=== PATIENT | female | born 1930 | race Caucasian/White ===

== ENCOUNTER 2017-02-09 15:23 | Inpatient (IN) | payer MEDICARE, BC ==
[~2017-02-09] VITALS: Ht 149.9 cm; Wt 55.0 kg
[2017-02-09] MEDS ORDERED: SOD CHLORIDE 0.9% 1,000 ML IV STA (15:47)
[2017-02-09] MEDS ORDERED: OMEP20CA16 PO (16:18)
[2017-02-09] MEDS ORDERED: SODI650T PO (16:19)
[2017-02-09] MEDS ORDERED: DILT180C94 PO (16:20)
[2017-02-09] MEDS ORDERED: TRAM-40 PO (16:21)
[2017-02-09] MEDS ORDERED: CHOL200073 PO (16:22)
[2017-02-09] MEDS ORDERED: ORENCIA 750 MG IV* (16:25)
[2017-02-09 16:30] LABS: BASOPHILS % 0.4 % (0.0-2.0); EOSINOPHILS # 0.4 10^3/ul (0.0-0.5); EOSINOPHILS % 4.9 % (0.0-7.0); HEMOGLOBIN 9.2 g/dl (12.0-16.0); LYMPHOCYTES # 1.6 10^3/ul (0.8-2.9); LYMPHOCYTES % 22.3 % (15.0-51.0); MEAN CORPUSCULAR HEMOGLOBIN 31.8 pg (29.0-33.0); MEAN CORPUSCULAR HGB CONC 32.9 g/dl (32.0-37.0); MEAN CORPUSCULAR VOLUME 96.9 fl (82.0-101.0); MEAN PLATELET VOLUME 9.3 fl (7.4-10.4); MONOCYTE # 0.7 10^3/ul (0.3-0.9); MONOCYTES % 9.4 % (0.0-11.0); NEUTROPHIL # 4.5 10^3/ul (1.6-7.5); NEUTROPHILS % 62.6 % (39.0-77.0); PLATELET COUNT 297 10^3/UL (140-415); RED BLOOD COUNT 2.89 10^6/ul (4.20-5.40); RED CELL DISTRIBUTION WIDTH 15.4 % (11.5-14.5); WHITE BLOOD COUNT 7.1 10^3/ul (4.8-10.8)
[2017-02-09 16:44] LABS: INR 0.97; PROTIME 12.9 Sec (12.2-14.2)
[2017-02-09 16:48] LABS: CALCIUM 8.7 mg/dl (8.4-10.2); CREATININE 4.76 mg/dl (0.44-1.00); POTASSIUM 4.3 mmol/L (3.5-5.1)
[2017-02-09] MEDS ORDERED: NA BICARBONATE 8.4% 50 ML SYG IV STA (16:55)
[2017-02-09] MEDS ORDERED: ACETAMINOPHEN 325 MG TAB PO PRN ×2 (17:00→19:30)
[2017-02-09] MEDS ORDERED: ONDANSETRON 4 MG INJ IV PRN ×2 (17:00→19:30)
[2017-02-09 17:03] LABS: TROPONIN-I 0.27 ng/ml (0.00-0.12)
--- NOTE | 2017-02-09 17:58 | CONS ---
Date/Time of Note Date/Time of Note DATE: 02/09/17 TIME: 17:57 Assessment/Plan Assessment/Plan Problems: (1) CKD (chronic kidney disease) stage 5, GFR less than 15 ml/min Status: Acute (2) Uremia Status: Acute (3) Anemia in CKD (chronic kidney disease) Status: Chronic (4) Metabolic acidosis Status: Chronic (5) Interstitial cystitis Status: Chronic (6) Osteoporosis Status: Chronic (7) Hypertension Status: Chronic Additional Assessment/Plan given uremia, plan to start hemodialysis plan for permacatheter placement. check phosphorus level. plan for epo with hemodialysis check quant gold and hepatitis panel in preparation for outpatient HD placement. case management consult for placement at [facility] in [place]. renally dose all medications to eGFR given that patient continues to make urine, avoid nephrotoxins if possible including iodinated contrast and NSAIDs. renal diet Feel free to call at any time: can text or call cell: [phone] office: [phone] Consultation Date/Type/Reason Admit Date/Time 02/09/17 6:00pm Date of Consultation: Feb 09, 2017 Type of Consultation: Nephrology Reason for Consultation management of CKD stage 5 in setting of uremia Referring Provider: ALEXANDRA COOPER MD Hx of Present Illness Primary Care Physician: Vj Niño MD with [facility] 86 female with history of rheumatoid arthritis, hypertension, osteoporosis, ckd stage 5, MGUS, anemia, hx of interstitial cystitis s/p cystectomy and ureterostomy placement was seen in my office today for follow up. Blood work yesterday showed a hemolyzed K of 6.6. Upon previous discussion, patient was not interested in hemodialysis. Today, patient states that she would like to try it. Family was present during discussion. Patient has been feeling tired recently. she has noted more swelling in the lower extremities and elbows. no dyspnea. no fevers. no chills. no vomiting. she has been taking sodium bicarbonate 650mg PO BID. patient continues to make about 2L of urine per day. no diarrhea. 14 pt review of systems was obtained and found to be negative or normal besides what was mentioned above. Past Medical History rheumatoid arthritis hypertension osteoporosis CKD stage 5 MGUS Anemia of CKD Interstitial cystitis s/p cystectomy and ureterostomy placement Past Surgical History cystectomy with neobladder small intestine surgery eye surgery joint replacement Family History Significant Family History: cancer Social History no tobacco, alcohol, drug use. Smoking Status: Never smoker Exam/Review of Systems Vital Signs Vitals Vital Signs Date Time Temp Pulse Resp B/P Pulse Ox O2 Delivery O2 Flow Rate FiO2 02/09/17 16:18 79 18 145/71 100 Room Air 02/09/17 15:25 100.0 Exam GENERAL: A&Ox3 NAD speaking in full sentences, cooperative and pleasant. Head: ncat, no ttp eyes: perrl, eomi, no scleral icterus. +conjunctival pallor neck: no jvd, no bruits, no cervical LAD CV: normal S1/S2 RRR no mrg LUNGS: ctab good air entry. no accessory muscle use. ABD: normal BS soft, NT, ND, catheter placed in suprapubic region. EXT: 2+ lower extremity to mid hogue. edema around elbows b/l. 2+ DP/PT pulses b/l SKIN: no rash, no erythema, no warmth. Results Result Diagram: 02/09/17 1615 02/09/17 1615 Results 24 hrs Laboratory Tests Test 02/09/17 16:15 White Blood Count 7.1 Red Blood Count 2.89 L Hemoglobin 9.2 L Hematocrit 28.0 L Mean Corpuscular Volume 96.9 Mean Corpuscular Hemoglobin 31.8 Mean Corpuscular Hemoglobin Concent 32.9 Red Cell Distribution Width 15.4 H Platelet Count 297 Mean Platelet Volume 9.3 Neutrophils % 62.6 Lymphocytes % 22.3 Monocytes % 9.4 Eosinophils % 4.9 Basophils % 0.4 Nucleated Red Blood Cells % 0.0 Neutrophils # 4.5 Lymphocytes # 1.6 Monocytes # 0.7 Eosinophils # 0.4 Basophils # 0.0 Nucleated Red Blood Cells # 0.0 Prothrombin Time 12.9 Prothrombin Time Ratio 1.0 INR International Normalized Ratio 0.97 Activated Partial Thromboplast Time 28.0 Sodium Level 137 Potassium Level 4.3 Chloride Level 106 Carbon Dioxide Level 15 L Anion Gap 20 H Blood Urea Nitrogen 66 H Creatinine 4.76 H Glucose Level 93 Calcium Level 8.7 Troponin I 0.270 *H Medications Medications outpatient meds reviewed. SIMONE BUSTILLO MD Feb 09, 2017 17:58
[2017-02-09] MEDS ORDERED: ALBUMIN HUMAN 25% 50 ML IV PRN (18:30)
[2017-02-09] MEDS ORDERED: ALBUMIN HUMAN 25% 100 ML IV PRN (18:30)
[2017-02-09] MEDS ORDERED: HEPARIN 1000 UNITS/ML 10 ML INJ CATHETER SCH (18:30)
--- NOTE | 2017-02-09 18:33 | ERA ---
ER Documentation Chief Complaint Date/Time DATE: 02/09/17 TIME: 18:29 Chief Complaint SENT BY PMD FOR CRAETININE 4.29 , POTASSIUM 6.6 HPI Patient is an 86-year-old female with hypertension and rheumatoid arthritis who presents with high creatinine and high potassium. The patient was sent by the doctor who had drawn labs yesterday. The daughter says "her kidneys have been going down over the past few months". The patient had a Newsome catheter and placed at [facility] and it was removed and she was unable to pee for 30 hours because of urinary retention. Her normal creatinine is 2. Upon review this the patient's first visit to the emergency department. The patient' s puzzle assembler is Dr. Phelan. ROS All systems reviewed and are negative except as per history of present illness. Medications Home Meds Reported Medications [Orencia 750MG] No Conflict Check, 750 MG IV* [id number] 02/09/17 Cholecalciferol (Vitamin D3) (VITAMIN D-3) 2,000 Unit Capsule, 2000 UNIT PO DAILY, CAP 02/09/17 Tramadol Hcl* (Ultram*) 50 Mg Tablet, 50 MG PO BID Y for PAIN, TAB 02/09/17 Diltiazem Hcl* (Diltiazem XT) 180 Mg Capsule.er, 180 MG PO DAILY, #30 CAP 02/09/17 Sodium Bicarbonate* (Sodium Bicarbonate*) 650 Mg Tablet, 650 MG PO BID, TAB 02/09/17 Omeprazole* (Omeprazole*) 20 Mg Capsule.dr, 20 MG PO DAILY, #30 CAP 02/09/17 PMhx/Soc History of Surgery: Yes (bilat foot sx, rt TKR, cystectomy suprapubic cath, lt detached retina, ) Anesthesia Reaction: No Hx Neurological Disorder: No Hx Respiratory Disorders: No Hx Cardiac Disorders: Yes (HTN) Hx Psychiatric Problems: No Hx Alcohol Use: No Hx Substance Use: No Hx Tobacco Use: No Smoking Status: Never smoker FmHx Family History: diabetes Physical Exam Vitals Vital Signs Date Time Temp Pulse Resp B/P Pulse Ox O2 Delivery O2 Flow Rate FiO2 02/09/17 16:18 79 18 145/71 100 Room Air 02/09/17 15:25 100.0 87 18 149/72 98 Physical Exam Const: No acute distress Head: Atraumatic Eyes: Normal Conjunctiva ENT: Normal External Ears, Nose and Mouth. Neck: Full range of motion..~ No meningismus. Resp: Clear to auscultation bilaterally Cardio: Regular rate and rhythm, no murmurs Abd: Soft, non tender, non distended. Normal bowel sounds Skin: No petechiae or rashes Back: No midline or flank tenderness Ext: Swelling to the upper extremities bilaterally Neur: Awake and alert Psych: Normal Mood and Affect Result Diagram: 02/09/17 1615 02/09/17 1615 Results 24 hrs Laboratory Tests Test 02/09/17 16:15 White Blood Count 7.110^3/ul Red Blood Count 2.8910^6/ul Hemoglobin 9.2g/dl Hematocrit 28.0% Mean Corpuscular Volume 96.9fl Mean Corpuscular Hemoglobin 31.8pg Mean Corpuscular Hemoglobin Concent 32.9g/dl Red Cell Distribution Width 15.4% Platelet Count 18196^3/UL Mean Platelet Volume 9.3fl Neutrophils % 62.6% Lymphocytes % 22.3% Monocytes % 9.4% Eosinophils % 4.9% Basophils % 0.4% Nucleated Red Blood Cells % 0.0/100WBC Neutrophils # 4.510^3/ul Lymphocytes # 1.610^3/ul Monocytes # 0.710^3/ul Eosinophils # 0.410^3/ul Basophils # 0.010^3/ul Nucleated Red Blood Cells # 0.010^3/ul Prothrombin Time 12.9Sec Prothrombin Time Ratio 1.0 INR International Normalized Ratio 0.97 Activated Partial Thromboplast Time 28.0Sec Sodium Level 137mmol/L Potassium Level 4.3mmol/L Chloride Level 106mmol/L Carbon Dioxide Level 15mmol/L Anion Gap 20 Blood Urea Nitrogen 66mg/dl Creatinine 4.76mg/dl Glucose Level 93mg/dl Calcium Level 8.7mg/dl Troponin I 0.270ng/ml Current Medications Medications (Trade) Dose Ordered Sig/Daryl Route PRN Reason Start Time Stop Time Status Last Admin Dose Admin Sodium Chloride (NS) 1,000 ml @ 1,000 mls/hr Q1H STAT IV 02/09/17 15:47 02/09/17 16:46 DC 02/09/17 16:14 Sodium Bicarbonate (Na Bicarb 8.4% Syg) 50 ml ONCE STAT IV 02/09/17 16:55 02/09/17 16:56 DC 02/09/17 17:32 Ondansetron HCl (Zofran Inj) 4 mg ER BRIDGE PRN IV NAUSEA AND/OR VOMITING 02/09/17 17:00 02/10/17 16:59 Acetaminophen (Tylenol Tab) 650 mg ER BRIDGE PRN PO MILD PAIN/FEVER 02/09/17 17:00 02/10/17 16:59 Heparin Sodium (Porcine) 4000 unit 4,000 unit AFTER DIALYSIS CATHETER 02/09/17 18:30 UNV Albumin Human 50 ml @ 100 mls/hr DURING DIALYSIS PRN IV SBP<90 DURING DIALYSIS 02/09/17 18:30 UNV Albumin Human (Albumin Human 25%) 100 ml @ 100 mls/hr DURING DIALYSIS PRN IV SBP<90 DURING DIALYSIS 02/09/17 18:30 UNV Epoetin Uzair (Epogen (Esrd)) 5,000 units MoWeFr@17 SC 02/10/17 17:00 UNV Procedures/MDM EKG read by me: Rate/Rhythm: Regular rate and rhythm at a normal rate Intervals: Normal Impression: No evidence of ischemia or arrhythmia Patient is an 86-year-old female with rheumatoid arthritis who presents with acute renal failure. Creatinine has gone from 2-4. The patient had a potassium of 6.6 done on outpatient labs yesterday but today it is normal. The patient will be admitted to the panel team for further workup. Dr. Phelan the puzzle assembler has seen the patient at the bedside and says the patient will require dialysis. The patient's bicarbonate is 15 showing acute acidosis and I gave 1 amp of bicarb. At this point the potassium is normal but has the possibility of going higher. The patient will be admitted to a telemetry bed. Critical Care: Time: 35 minutes excluding all billable procedures. Treatments/Evaluations: Close monitoring and treatment of unstable vital signs, cardiorespiratory, and neurologic status, while maintaining tight balance of fluid, respiratory, and cardiac interventions. Departure Diagnosis: Primary Impression: Acute renal failure Qualified Code: N17.9 - Acute renal failure, unspecified acute renal failure type Additional Impression: Acidosis ALEXANDRA COOPER MD Feb 09, 2017 18:33
[2017-02-09] MEDS ORDERED: ASPIRIN 325 MG TAB PO ONE (19:00)
[2017-02-09] MEDS ORDERED: DOCUSATE SODIUM 100 MG CAP PO PRN (19:30)
[2017-02-09] MEDS ORDERED: BISACODYL (EC) 5 MG TAB PO PRN (19:30)
[2017-02-09] MEDS ORDERED: ONDANSETRON 4 MG TAB PO PRN (19:30)
[2017-02-09] MEDS ORDERED: MAGNESIUM HYDROXIDE 30ML CUP PO PRN (19:30)
[2017-02-09] MEDS ORDERED: NACL 0.9% 3 ML SYG IV SCH (19:30)
[2017-02-09 20:49] VITALS: TEMP 98.4
[2017-02-09 21:13] VITALS: PULSE 79
--- NOTE | 2017-02-09 22:05 | HP ---
Date/Time of Note Date/Time of Note DATE: 02/09/17 TIME: 22:02 Assessment/Plan VTE Prophylaxis VTE Prophylaxis Intervention: LMWH Lines/Catheters IV [facility]ter Type [facility]from [facility]): Saline Lock Assessment/Plan Chief Complaint/Hosp Course This is a 86-year-old female being admitted to the telemetry floor for: #1 Acute on chronic kidney failure: Patient according to chart review and documentation as per her producer director has a baseline creatinine of 2. At the current time is elevated to 4.76 with a BUN of 66. Patient is still producing urine. She will be undergoing permacath placement in preparation for dialysis. The current time will avoid nephrotoxic agents. Further recommendations as per nephrology. #2 uremia: Secondary to #1. BUN 66 creatinine of 4.76. Patient will be undergoing preparation for dialysis tomorrow in the a.m. Further recommendations as per nephro. #3 elevated troponin: Patient denies any chest pain. She did receive aspirin in the ED. This likely could be related to her chronic kidney disease. Will continue to follow this. check 2d echo. Her EKG is normal sinus rhythm with no overt st or t wave abnormalities. I do not feel this is true ischemia at this time. Will consult cardiology. #4 Normocytic anemia: This likely is secondary to chronic kidney disease. Patient will be receiving people as per nephro. Continue to monitor. #5 rheumatoid arthritis: Stable, will avoid NSAIDs at this time secondary to CKD , continue tramadol. #6 hypertension: Continue home medications and will add hydralazine as needed. #7 DVT GI prophylaxis: Lovenox, Protonix Further treatment strategy will be implemented as per the clinical course Problems: HPI/ROS Admit Date/Time Admit Date/Time 02/09/17 6:00pm Hx of Present Illness Chief complaint: High creatinine and high potassium This is 86-year-old female with hypertension and rheumatoid arthritis who presents with high creatinine and high potassium. She had been feeling tired recently and she also states that she had noticed more swelling in her lower extremities and also on her face and her elbows. The following was obtained from the ED physician documentation as well as nephrology documentation. Patient had outpatient labs performed yesterday which showed a high creatinine and high potassium. Her daughter state that her kidneys have not been getting worse over the past few months. The patient had a Newsome catheter and placed at [facility] and it was removed and she was unable to pee for 30 hours because of urinary retention. She follows with her producer director who had discussed dialysis with her however she was not interested at that time however now she is agreeable to it as per her producer director. Allergies: Tocilizumab Medications: See ANTHONY WISEMAN Const: As per HPI Eyes : No pain discharge or redness or change in visual acuity ENT: No pain, sore throat, congestion, congestion, dysphagia or discharge Respiratory: No shortness of breath, cough, sputum, wheezing, or pleuritic pain Cardiovascular: No chest pain, palpitation, PND, or edema GI : no change in appetite, abdominal pain, nausea, vomiting, diarrhea, constipation, or change in the color his stool Genitourinary: As per HPI Musculoskeletal: No joint pain, back pain, neck pain, restricted range of motion in neck or joints Skin: As per HPI Neuro: No headache, dizziness, syncope, seizure, focal weakness Endocrine: No polyuria, polydipsia, temperature intolerance Psych: No hallucination, depression, anxiety or suicidal ideation PMH/Family/Social Past Medical History rheumatoid arthritis, hypertension, osteoporosis, ckd stage 5, MGUS, anemia, hx of interstitial cystitis Past Surgical History s/p cystectomy and ureterostomy placement, right knee replacement Family History Significant Family History: hypertension Social History Alcohol Use: none (Dad) Smoking Status: Never smoker Drug Use: none Exam/Review of Systems Vital Signs Vitals Vital Signs Date Time Temp Pulse Resp B/P Pulse Ox O2 Delivery O2 Flow Rate FiO2 02/09/17 21:13 79 02/09/17 20:49 98.4 18 184/99 98 Room Air Exam Exam General: Patient is well-developed female lying in bed in no acute distress HEENT: Atraumatic, normocephalic. The pupils are equal, round and reactive. Extraocular motor are intact Neck: Supple with full range of motion. No rigidity or meningismus Chest: Nontender Lungs: Clear to auscultation bilaterally no crackles rales or wheezing Heart: Normal S1-S2, Regular rhythm and rate. No murmur, S3, or S4 Abdomen: Soft , nontender, nondistended , bowel sounds are present. No guarding no rebound tenderness , No masses or organomegaly. No costovertebral temporal angle mass Extremities: 1+ pitting edema of lower extremity, deformity of bilateral fingers /hands consistent with RA Neurologic: Normal mental status, speech normal, cranial nerves II through XII are intact, motor and sensory are intact, no focal weakness Skin: Generalized swelling noted of the face the elbows and the lower extremities Additional Comments EKG read by me: Rate/Rhythm: Regular rate and rhythm at a normal rate Intervals: Normal Impression: No evidence of ischemia or arrhythmia As per ED physician documentation Labs Result Diagram: 02/09/17 1615 02/09/17 1615 Medications Medications Current Medications Epoetin Uzair (Epogen (Esrd)) 5,000 units MoWeFr@17 SC ; Start 02/10/17 at 17:00 Cholecalciferol (Vitamin D) 2,000 unit DAILY PO ; Start 02/10/17 at 09:00 Diltiazem HCl (Cardizem Cd) 180 mg DAILY PO ; Start 02/10/17 at 09:00 Tramadol HCl (Ultram) 50 mg BID PRN PO PAIN; Start 02/09/17 at 19:30 Pantoprazole (Protonix Tab) 40 mg DAILY@06 PO ; Start 02/10/17 at 06:00 Ondansetron HCl (Zofran Tab) 4 mg Q6H PRN PO NAUSEA AND/OR VOMITING; Start at 19:30 Ondansetron HCl (Zofran Inj) 4 mg Q6H PRN IV NAUSEA AND/OR VOMITING; Start at 19:30 Acetaminophen (Tylenol Tab) 650 mg Q6H PRN PO PAIN LEVEL 1-3 OR FEVER; Start at 19:30 Acetaminophen/ Hydrocodone Bitart ([place] (5/325)) 1 tab Q6H PRN PO MODERATE PAIN LEVEL 4-6; Start 02/09/17 at 19:30 Docusate Sodium (Colace) 100 mg Q12H PRN PO CONSTIPATION; Start 02/09/17 at 19: 30 Magnesium Hydroxide (Milk Of Mag) 30 ml DAILY PRN PO CONSTIPATION; Start at 19:30 Bisacodyl (Dulcolax) 5 mg DAILY PRN PO CONSTIPATION; Start 02/09/17 at 19:30 Enoxaparin Sodium (Lovenox) 30 mg DAILY SC ; Start 02/10/17 at 09:00 Sodium Bicarbonate (Sodium Bicarbonate Tab) 650 mg QID PO ; Start 02/10/17 at 09 :00 ROYCE BRYAN Feb 09, 2017 22:05
[2017-02-09 22:16] VITALS: Ht 149.9 cm; Wt 55.0 kg
[2017-02-10] VITALS (11 sets, daily range): BP systolic 128–183; BP diastolic 67–86; PULSE 66–83; RESP 17–20
[2017-02-10] MEDS ORDERED: morphine 2 MG INJ IV PRN (00:30)
[2017-02-10] MEDS: traMADol 50 MG TAB PO PRN ×2 (00:44→10:15)
[2017-02-10] MEDS: hydrALAzine 20 MG INJ IV PRN (00:44)
[2017-02-10 01:53] LABS: CK-MB 3.12 ng/ml (0.0-2.4)
[2017-02-10 01:57] LABS: TROPONIN-I 0.249 ng/ml (0.00-0.12)
[2017-02-10] MEDS: PANTOPRAZOLE (EC) 40 MG TAB PO SCH (06:22)
--- NOTE | 2017-02-10 06:36 | CONS ---
Date/Time of Note Date/Time of Note DATE: 02/10/17 TIME: 06:30 Assessment/Plan Assessment/Plan Chief Complaint/Hosp Course 86 female with history of rheumatoid arthritis, hypertension, osteoporosis, ckd stage 5, MGUS, anemia, hx of interstitial cystitis s/p cystectomy and ureterostomy placement presents with CKD stage 5 and uremia. Problems: (1) CKD (chronic kidney disease) stage 5, GFR less than 15 ml/min Status: Acute Comment: EGFR 3 months ago fluctuated between 8-12. patient has CKD stage 5 since hospitalization at [facility] 10/18/16 in which patient had urinary obstruction and gupta was placed in neobladder. (2) Anemia in CKD (chronic kidney disease) Status: Chronic (3) Metabolic acidosis Status: Chronic (4) Hypertension Status: Chronic (5) Uremia Status: Acute (6) Osteoporosis Status: Chronic (7) Interstitial cystitis Status: Chronic (8) Hyperphosphatemia Additional Assessment/Plan given uremia, plan to start hemodialysis plan for permacatheter placement. check phosphorus level daily. once patient is started on HD, can d/c sodium bicarbonate. start renvela 1.6g with meals for hyperphosphatemia. plan for epo 5000 units with hemodialysis check quant gold and hepatitis panel in preparation for outpatient HD placement. case management consult for placement at [facility] in [place]. renally dose all medications to eGFR given that patient continues to make urine, avoid nephrotoxins if possible including iodinated contrast and NSAIDs. renal diet Feel free to call at any time: can text or call cell: [phone] office: [phone] Consultation Date/Type/Reason Admit Date/Time Feb 09, 2017 at 16:58 Initial Consult Date 02/09/17 Type of Consultation: Nephrology Reason for Consultation management of CKD stage 5 and uremia Referring Provider: ALEXANDRA COOPER MD 24 HR Interval Summary Free Text/Dictation +nausea, chronic fatigue, lower extremity swelling, poor appetite. no vomiting. patient states that she slept well. no dyspnea. catheter placed in neobladder with yellow urine. Exam/Review of Systems Vital Signs Vitals Vital Signs Date Time Temp Pulse Resp B/P Pulse Ox O2 Delivery O2 Flow Rate FiO2 02/10/17 04:25 83 02/10/17 04:03 97.6 17 144/67 97 02/09/17 20:49 Room Air Intake and Output 02/09/17 02/09/17 02/10/17 15:00 23:00 07:00 Intake Total 750 ml Output Total 600 ml Balance 150 ml Exam GENERAL: A&Ox3 NAD speaking in full sentences, cooperative and pleasant. Head: ncat, no ttp eyes: perrl, eomi, no scleral icterus. +conjunctival pallor neck: no jvd, no bruits, no cervical LAD CV: normal S1/S2 RRR no mrg LUNGS: ctab good air entry. no accessory muscle use. ABD: normal BS soft, NT, ND, catheter placed in suprapubic region. EXT: 2+ lower extremity to mid hogue. edema around elbows b/l. 2+ DP/PT pulses b/l SKIN: no rash, no erythema, no warmth. Results Result Diagram: 02/09/17 1615 02/09/17 1615 Results 24 hrs Laboratory Tests Test 02/09/17 16:15 02/10/17 00:39 White Blood Count 7.1 Red Blood Count 2.89 L Hemoglobin 9.2 L Hematocrit 28.0 L Mean Corpuscular Volume 96.9 Mean Corpuscular Hemoglobin 31.8 Mean Corpuscular Hemoglobin Concent 32.9 Red Cell Distribution Width 15.4 H Platelet Count 297 Mean Platelet Volume 9.3 Neutrophils % 62.6 Lymphocytes % 22.3 Monocytes % 9.4 Eosinophils % 4.9 Basophils % 0.4 Nucleated Red Blood Cells % 0.0 Neutrophils # 4.5 Lymphocytes # 1.6 Monocytes # 0.7 Eosinophils # 0.4 Basophils # 0.0 Nucleated Red Blood Cells # 0.0 Prothrombin Time 12.9 Prothrombin Time Ratio 1.0 INR International Normalized Ratio 0.97 Activated Partial Thromboplast Time 28.0 Sodium Level 137 Potassium Level 4.3 Chloride Level 106 Carbon Dioxide Level 15 L Anion Gap 20 H Blood Urea Nitrogen 66 H Creatinine 4.76 H Glucose Level 93 Calcium Level 8.7 Troponin I 0.270 *H 0.249 *H Creatine Kinase 32 Creatine Kinase Index 9.8 Creatinine Kinase MB (Mass) 3.12 H Medications Medications Current Medications Epoetin Uzair (Epogen (Esrd)) 5,000 units MoWeFr@17 SC ; Start 02/10/17 at 17:00 Cholecalciferol (Vitamin D) 2,000 unit DAILY PO ; Start 02/10/17 at 09:00 Diltiazem HCl (Cardizem Cd) 180 mg DAILY PO ; Start 02/10/17 at 09:00 Tramadol HCl (Ultram) 50 mg BID PRN PO PAIN Last administered on 02/10/17 00: 44; Admin Dose 50 MG; Start 02/09/17 at 19:30 Pantoprazole (Protonix Tab) 40 mg DAILY@06 PO Last administered on 02/10/17 06 :22; Admin Dose 40 MG; Start 02/10/17 at 06:00 Ondansetron HCl (Zofran Tab) 4 mg Q6H PRN PO NAUSEA AND/OR VOMITING; Start at 19:30 Ondansetron HCl (Zofran Inj) 4 mg Q6H PRN IV NAUSEA AND/OR VOMITING; Start at 19:30 Acetaminophen (Tylenol Tab) 650 mg Q6H PRN PO PAIN LEVEL 1-3 OR FEVER; Start at 19:30 Acetaminophen/ Hydrocodone Bitart ([place] (5/325)) 1 tab Q6H PRN PO MODERATE PAIN LEVEL 4-6; Start 02/09/17 at 19:30 Docusate Sodium (Colace) 100 mg Q12H PRN PO CONSTIPATION; Start 02/09/17 at 19: 30 Magnesium Hydroxide (Milk Of Mag) 30 ml DAILY PRN PO CONSTIPATION; Start at 19:30 Bisacodyl (Dulcolax) 5 mg DAILY PRN PO CONSTIPATION; Start 02/09/17 at 19:30 Enoxaparin Sodium (Lovenox) 30 mg DAILY SC ; Start 02/10/17 at 09:00 Sodium Bicarbonate (Sodium Bicarbonate Tab) 650 mg QID PO ; Start 02/10/17 at 09 :00 Hydralazine HCl (Apresoline) 10 mg Q6H PRN IV ELEVATED SYSTOLIC BP Last administered on 02/10/17 00:44; Admin Dose 10 MG; Start 02/10/17 at 00:30 Morphine Sulfate (morphine) 2 mg Q4H PRN IV PAIN; Start 02/10/17 at 00:30 SIMONE BUSTILLO MD Feb 10, 2017 06:36
[2017-02-10 07:58] LABS: BASOPHILS % 0.5 % (0.0-2.0); EOSINOPHILS # 0.3 10^3/ul (0.0-0.5); EOSINOPHILS % 4.7 % (0.0-7.0); HEMOGLOBIN 9.5 g/dl (12.0-16.0); LYMPHOCYTES # 1.6 10^3/ul (0.8-2.9); LYMPHOCYTES % 25.1 % (15.0-51.0); MEAN CORPUSCULAR HEMOGLOBIN 30.6 pg (29.0-33.0); MEAN CORPUSCULAR HGB CONC 31.7 g/dl (32.0-37.0); MEAN CORPUSCULAR VOLUME 96.8 fl (82.0-101.0); MEAN PLATELET VOLUME 9.4 fl (7.4-10.4); MONOCYTE # 0.5 10^3/ul (0.3-0.9); MONOCYTES % 7.6 % (0.0-11.0); NEUTROPHIL # 3.9 10^3/ul (1.6-7.5); NEUTROPHILS % 61.8 % (39.0-77.0); PLATELET COUNT 314 10^3/UL (140-415); RED CELL DISTRIBUTION WIDTH 15.3 % (11.5-14.5); WHITE BLOOD COUNT 6.3 10^3/ul (4.8-10.8)
[2017-02-10 09:00] LABS: CALCIUM 8.7 mg/dl (8.4-10.2); CREATININE 4.7 mg/dl (0.44-1.00); MAGNESIUM 1.8 mg/dl (1.7-2.5); PHOSPHORUS 7.2 mg/dl (2.5-4.9); POTASSIUM 3.7 mmol/L (3.5-5.1)
[2017-02-10] MEDS ORDERED: DILTIAZEM (CD) 180 MG CAP PO SCH (09:00)
[2017-02-10] MEDS ORDERED: NA BICARBONATE 650 MG TAB PO SCH (09:00)
[2017-02-10 09:03] LABS: CK-MB 3.34 ng/ml (0.0-2.4)
[2017-02-10 09:09] LABS: TROPONIN-I 0.248 ng/ml (0.00-0.12)
--- NOTE | 2017-02-10 09:21 | RADRPT ---
PROCEDURE: Chest Radiograph. CLINICAL INDICATION: Weakness TECHNIQUE: Single frontal chest radiograph. COMPARISON: None available FINDINGS: The patient is rotated. Heart size is poorly evaluated but appears enlarged. Atherosclerotic calci fications are present. There is increased soft tissue density adjacent to the trachea which may be in part related to patient rotation and/or tortuous vasculature. Tracheal adenopathy could also hav e this appearance. There is suggestion of small bilateral pleural effusions with adjacent atelectas is. Diffuse interstitial opacities are nonspecific but likely related to chronic lung changes. Pul monary edema could also have this appearance . There is no definite confluent or lobar infiltrate s een. The bones are intact. IMPRESSION: 1. Study limited by patient rotation. 2. Atherosclerotic vascular disease and probable cardiomegaly. 3. Nonspecific interstitial opacities. RPTAT: KK .Otis Baron MD, Date Time Electronically viewed and signed by .Otis Baron MD, on 02/10/2017 09:21 .B/
[2017-02-10 09:25] LABS: ALBUMIN 2.5 g/dl (3.3-4.9); ALBUMIN/GLOBULIN RATIO 0.78; CALCIUM 8.6 mg/dl (8.4-10.2); CREATININE 4.52 mg/dl (0.44-1.00); TOTAL PROTEIN 5.7 g/dl (6.1-8.1)
[2017-02-10] MEDS: NA BICARBONATE 650 MG TAB PO SCH ×4 (09:46→20:36)
[2017-02-10] MEDS: CHOLECALCIFEROL 2,000 UNIT CAP PO SCH (09:51)
--- NOTE | 2017-02-10 11:09 | RADRPT ---
Echocardiogram Report Patient Name: ARNOLD AMADOR Gender: Female Date: 1930 Study Date: 10-Feb-2017 [employer] Aide: Kaylah GARRETT RDCS Location: I Ref. Physician: ROYCE BRYAN Quality: Good Procedures: Transthoracic echocardiogram with complete 2D, M-Mode, and doppler examination. Indications: Evaluate troponine. 2D/M Mode Doppler Measurement Value Normal Ranges Measurement Value Normal Ranges LVIDd 2D 4.0 3.5 - 5.6 cm BHARTI Vmax 2.7 cm2 LVIDs 2D 3.1 2.1 - 4.1 cm BHARTI VTI 2.7 cm2 LVPWd 2D 1.4 0.6 - 1.1 cm AV Peak Valeriano 1.4 m/sec IVSd 2D 1.4 0.6 - 1.1 cm AV Peak PG 8.3 mmHg AoR Diam 2D 3.4 2.0 - 3.7 cm LVOT Peak Valeriano 1.1 m/sec EDV 2D 70.3 cm3 LVOT Peak PG 5.0 mmHg ESV 2D 29.1 cm3 MV E Peak Valeriano 1.0 m/sec LA Dimen 2D 3.1 2.3 - 4.0 cm MV A Peak Valeriano 1.4 m/sec LVOT Diam 2.1 cm MV E/A 0.7 MV Decel Time 311 msec MV Decel [place] 3 MV E/A 0.7 TR Peak Valeriano 3.4 m/sec TR Peak PG 45.5 mmHg RVSP 48.3 mmHg Findings Left Ventricle: Normal left ventricular systolic function. Normal left ventricular cavity size. Moderate concentric left ventricular hypertrophy. Ejection fraction is visually estimated at 55 %. Abnormal Diastolic Function. Right Ventricle: Normal right ventricular size. Normal right ventricular systolic function. Left Atrium: The left atrium is normal in size. Right Atrium: The right atrium is normal in size. Mitral Valve: Mild mitral annular calcification. Trace mitral regurgitation. Aortic Valve: Normal appearance of the aortic valve. No significant aortic stenosis or insufficiency. Tricuspid Valve: Normal appearance of the tricuspid valve. Estimated peak PA systolic pressure 49 mmHg. There is mild to moderate tricuspid regurgitation. Pulmonic Valve: Normal pulmonic valve appearance. Pericardium: Trivial to small pericardial effusion. Pleural effusion seen. Aorta: Normal aortic root. IVC: Normal size and normal respiratory collapse consistent with normal right atrial pressure. Pulmonary Artery: Not well visualized. Conclusions 1.Normal left ventricular systolic function. Normal left ventricular cavity size. Moderate concentric left ventricular hypertrophy. Ejection fraction is visually estimated at 55 %. Abnormal Diastolic Function. 2.Normal right ventricular size. Normal right ventricular systolic function. 3.The left atrium is normal in size. 4.The right atrium is normal in size. 5.mitral regurgitation. 6.No significant aortic stenosis or insufficiency. 7.Estimated peak PA systolic pressure 49 mmHg. There is mild to moderate tricuspid regurgitation. 8.Trivial to small pericardial effusion. Pleural effusion seen. Electronically Signed By: Sven Moreno 10-Feb-2017 11:08:40 -0700 Patient Name: ARNOLD AMADOR Study Date: 10-Feb-2017 [id number]
--- NOTE | 2017-02-10 12:50 | PN ---
Date/Time of Note Date/Time of Note DATE: 02/10/17 TIME: 12:48 Assessment/Plan VTE Prophylaxis VTE Prophylaxis Intervention: SCD's Lines/Catheters IV Catheter Type (from Nrs): Saline Lock Urinary Cath still in place: Yes Reason Cath still needed: other (indicate) (strict Is/Os requested by renal) Assessment/Plan Assessment/Plan 86 yo F with CKD5 directly admitted from nephrology clinic for hyperkalemia ( now resolved) and progressive uremia. Admitted to facilitate initiation of HD. Labs also notable for incidental finding of elevated troponin. Pt denies chest pain. #ESRD: renal following plan for HD line placement today? will dc PO bicarb once HD is started CM working on outpatient HD logistics #elevated troponin: clinical significance unclear in absence of chest pain -cardiology consulted overnight pt not on bb, acei, statin or asa as outpatient .BP controlled with CCB. -->start low dose bb, uptitrate as tolerated #h/o RA: tramadol PRN pain, hold NSAIDs #FEN: renal diet, no IVFs DVT prophx Subjective 24 Hr Interval Summary Free Text/Dictation Pt denies any chest pain Exam/Review of Systems Vital Signs Vitals Vital Signs Date Time Temp Pulse Resp B/P Pulse Ox O2 Delivery O2 Flow Rate FiO2 02/10/17 12:20 73 02/10/17 11:26 98.5 17 155/74 97 02/09/17 20:49 Room Air Intake and Output 02/09/17 02/09/17 02/10/17 15:00 23:00 07:00 Intake Total 750 ml 100 ml Output Total 600 ml 1000 ml Balance 150 ml -900 ml Exam nad, laying in bed no mrg lungs clear abd soft no rashes K wnl troponins noted Results Result Diagram: 02/10/17 0644 02/10/17 0644 Results 24 hrs Laboratory Tests Test 02/09/17 16:15 02/10/17 00:39 02/10/17 06:44 White Blood Count 7.1 6.3 Red Blood Count 2.89 L 3.10 L Hemoglobin 9.2 L 9.5 L Hematocrit 28.0 L 30.0 L Mean Corpuscular Volume 96.9 96.8 Mean Corpuscular Hemoglobin 31.8 30.6 Mean Corpuscular Hemoglobin Concent 32.9 31.7 L Red Cell Distribution Width 15.4 H 15.3 H Platelet Count 297 314 Mean Platelet Volume 9.3 9.4 Neutrophils % 62.6 61.8 Lymphocytes % 22.3 25.1 Monocytes % 9.4 7.6 Eosinophils % 4.9 4.7 Basophils % 0.4 0.5 Nucleated Red Blood Cells % 0.0 0.0 Neutrophils # 4.5 3.9 Lymphocytes # 1.6 1.6 Monocytes # 0.7 0.5 Eosinophils # 0.4 0.3 Basophils # 0.0 0.0 Nucleated Red Blood Cells # 0.0 0.0 Prothrombin Time 12.9 Prothrombin Time Ratio 1.0 INR International Normalized Ratio 0.97 Activated Partial Thromboplast Time 28.0 Sodium Level 137 142 Potassium Level 4.3 4.0 Chloride Level 106 113 H Carbon Dioxide Level 15 L 15 L Anion Gap 20 H 18 H Blood Urea Nitrogen 66 H 60 H Creatinine 4.76 H 4.52 H Glucose Level 93 81 Calcium Level 8.7 8.6 Troponin I 0.270 *H 0.249 *H 0.248 *H Creatine Kinase 32 25 Creatine Kinase Index 9.8 13.4 Creatinine Kinase MB (Mass) 3.12 H 3.34 H Phosphorus Level 7.2 H Magnesium Level 1.8 Total Bilirubin 0.0 L Direct Bilirubin 0.00 Indirect Bilirubin 0.0 Aspartate Amino Transf (AST/SGOT) 19 Alanine Aminotransferase (ALT/SGPT) 22 Alkaline Phosphatase 51 Total Protein 5.7 L Albumin 2.5 L Globulin 3.20 Albumin/Globulin Ratio 0.78 Medications Medications Current Medications Epoetin Uzair (Epogen (Esrd)) 5,000 units MoWeFr@17 SC ; Start 02/10/17 at 17:00 Cholecalciferol (Vitamin D) 2,000 unit DAILY PO Last administered on 02/10/17 09:51; Admin Dose 2,000 UNIT; Start 02/10/17 at 09:00 Diltiazem HCl (Cardizem Cd) 180 mg DAILY PO Last administered on 02/10/17 09: 45; Admin Dose 180 MG; Start 02/10/17 at 09:00 Tramadol HCl (Ultram) 50 mg BID PRN PO PAIN Last administered on 02/10/17 10: 15; Admin Dose 50 MG; Start 02/09/17 at 19:30 Pantoprazole (Protonix Tab) 40 mg DAILY@06 PO Last administered on 02/10/17 06 :22; Admin Dose 40 MG; Start 02/10/17 at 06:00 Ondansetron HCl (Zofran Tab) 4 mg Q6H PRN PO NAUSEA AND/OR VOMITING Last administered on 02/10/17 10:19; Admin Dose 4 MG; Start 02/09/17 at 19:30 Ondansetron HCl (Zofran Inj) 4 mg Q6H PRN IV NAUSEA AND/OR VOMITING; Start at 19:30 Acetaminophen (Tylenol Tab) 650 mg Q6H PRN PO PAIN LEVEL 1-3 OR FEVER; Start at 19:30 Acetaminophen/ Hydrocodone Bitart ([place] (5/325)) 1 tab Q6H PRN PO MODERATE PAIN LEVEL 4-6; Start 02/09/17 at 19:30 Docusate Sodium (Colace) 100 mg Q12H PRN PO CONSTIPATION; Start 02/09/17 at 19: 30 Magnesium Hydroxide (Milk Of Mag) 30 ml DAILY PRN PO CONSTIPATION; Start at 19:30 Bisacodyl (Dulcolax) 5 mg DAILY PRN PO CONSTIPATION; Start 02/09/17 at 19:30 Enoxaparin Sodium (Lovenox) 30 mg DAILY SC ; Start 02/10/17 at 09:00 Sodium Bicarbonate (Sodium Bicarbonate Tab) 650 mg QID PO Last administered on 02/10/17 09:46; Admin Dose 650 MG; Start 02/10/17 at 09:00 Hydralazine HCl (Apresoline) 10 mg Q6H PRN IV ELEVATED SYSTOLIC BP Last administered on 02/10/17 00:44; Admin Dose 10 MG; Start 02/10/17 at 00:30 Morphine Sulfate (morphine) 2 mg Q4H PRN IV PAIN; Start 02/10/17 at 00:30 Procedures Procedures TTE with EF 55%, +DD JESSICA BABB MD Feb 10, 2017 12:50
[2017-02-10] MEDS ORDERED: LIDOCAINE 1% (MDV) 20 ML INJ ONE (14:20)
[2017-02-10] MEDS ORDERED: HEPARIN 1000 UNITS/ML 10 ML INJ ONE (14:20)
--- NOTE | 2017-02-10 14:42 | CONS ---
Date/Time of Note Date/Time of Note DATE: 02/10/17 TIME: 14:36 Assessment/Plan Assessment/Plan Additional Assessment/Plan Acute on chronic kidney disease Mildly elevated troponin Left ventricular hypertrophy Preserved ejection fraction -Patient with incidental mildly elevated troponin, likely secondary to decreased renal clearance and patient remains asymptomatic. Echocardiogram with preserved ejection fraction and evidence of LVH. Would continue aspirin therapy and statin therapy if no complication. Beta-blockers heart rate and blood pressure permits. The benefits of permacath placement outweigh the cardiac risks at the current time. 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 On routine labs, patient found to have elevated troponin for this reason cardiology consultation was requested. He denies exertional shortness of breath or chest pain. She denies any dizziness or lightheadedness or palpitations. She does complain of fatigue. She denies any cardiac history. 12 point review of systems was performed with all pertinent positives and negatives mentioned above and all else is negative Past Medical History Medical History: hypertension, renal disease Family History Significant Family History: no pertinent family hx Social History Alcohol Use: none (Dad) Smoking Status: Never smoker Drug Use: none Exam/Review of Systems Vital Signs Vitals Vital Signs Date Time Temp Pulse Resp B/P Pulse Ox O2 Delivery O2 Flow Rate FiO2 02/10/17 12:20 73 02/10/17 11:26 98.5 17 155/74 97 02/09/17 20:49 Room Air Intake and Output 02/09/17 02/09/17 02/10/17 15:00 23:00 07:00 Intake Total 750 ml 100 ml Output Total 600 ml 1000 ml Balance 150 ml -900 ml Exam No apparent distress, family at bedside Constitutional: alert, oriented Head: normocephalic Respiratory: other (Coarse breath sounds bilaterally, no wheezing) Cardiovascular: other (S1-S2 heard), regular rate and rhythm Gastrointestinal: bowel sounds, non-tender, soft Extremities: edema Results Result Diagram: 02/10/17 0644 02/10/17 0644 Results 24 hrs Laboratory Tests Test 02/09/17 16:15 02/10/17 00:39 02/10/17 06:44 White Blood Count 7.1 6.3 Red Blood Count 2.89 L 3.10 L Hemoglobin 9.2 L 9.5 L Hematocrit 28.0 L 30.0 L Mean Corpuscular Volume 96.9 96.8 Mean Corpuscular Hemoglobin 31.8 30.6 Mean Corpuscular Hemoglobin Concent 32.9 31.7 L Red Cell Distribution Width 15.4 H 15.3 H Platelet Count 297 314 Mean Platelet Volume 9.3 9.4 Neutrophils % 62.6 61.8 Lymphocytes % 22.3 25.1 Monocytes % 9.4 7.6 Eosinophils % 4.9 4.7 Basophils % 0.4 0.5 Nucleated Red Blood Cells % 0.0 0.0 Neutrophils # 4.5 3.9 Lymphocytes # 1.6 1.6 Monocytes # 0.7 0.5 Eosinophils # 0.4 0.3 Basophils # 0.0 0.0 Nucleated Red Blood Cells # 0.0 0.0 Prothrombin Time 12.9 Prothrombin Time Ratio 1.0 INR International Normalized Ratio 0.97 Activated Partial Thromboplast Time 28.0 Sodium Level 137 142 Potassium Level 4.3 4.0 Chloride Level 106 113 H Carbon Dioxide Level 15 L 15 L Anion Gap 20 H 18 H Blood Urea Nitrogen 66 H 60 H Creatinine 4.76 H 4.52 H Glucose Level 93 81 Calcium Level 8.7 8.6 Troponin I 0.270 *H 0.249 *H 0.248 *H Creatine Kinase 32 25 Creatine Kinase Index 9.8 13.4 Creatinine Kinase MB (Mass) 3.12 H 3.34 H Phosphorus Level 7.2 H Magnesium Level 1.8 Total Bilirubin 0.0 L Direct Bilirubin 0.00 Indirect Bilirubin 0.0 Aspartate Amino Transf (AST/SGOT) 19 Alanine Aminotransferase (ALT/SGPT) 22 Alkaline Phosphatase 51 Total Protein 5.7 L Albumin 2.5 L Globulin 3.20 Albumin/Globulin Ratio 0.78 Medications Medications Current Medications Epoetin Uzair (Epogen (Esrd)) 5,000 units MoWeFr@17 SC ; Start 02/10/17 at 17:00 Cholecalciferol (Vitamin D) 2,000 unit DAILY PO Last administered on 02/10/17t 09:51; Admin Dose 2,000 UNIT; Start 02/10/17 at 09:00 Diltiazem HCl (Cardizem Cd) 180 mg DAILY PO Last administered on 02/10/17 09: 45; Admin Dose 180 MG; Start 02/10/17 at 09:00 Tramadol HCl (Ultram) 50 mg BID PRN PO PAIN Last administered on 02/10/17 10: 15; Admin Dose 50 MG; Start 02/09/17 at 19:30 Pantoprazole (Protonix Tab) 40 mg DAILY@06 PO Last administered on 02/10/17 06 :22; Admin Dose 40 MG; Start 02/10/17 at 06:00 Ondansetron HCl (Zofran Tab) 4 mg Q6H PRN PO NAUSEA AND/OR VOMITING Last administered on 02/10/17 10:19; Admin Dose 4 MG; Start 02/09/17 at 19:30 Ondansetron HCl (Zofran Inj) 4 mg Q6H PRN IV NAUSEA AND/OR VOMITING; Start at 19:30 Acetaminophen (Tylenol Tab) 650 mg Q6H PRN PO PAIN LEVEL 1-3 OR FEVER; Start at 19:30 Acetaminophen/ Hydrocodone Bitart ([place] (5/325)) 1 tab Q6H PRN PO MODERATE PAIN LEVEL 4-6; Start 02/09/17 at 19:30 Docusate Sodium (Colace) 100 mg Q12H PRN PO CONSTIPATION; Start 02/09/17 at 19: 30 Magnesium Hydroxide (Milk Of Mag) 30 ml DAILY PRN PO CONSTIPATION; Start at 19:30 Bisacodyl (Dulcolax) 5 mg DAILY PRN PO CONSTIPATION; Start 02/09/17 at 19:30 Enoxaparin Sodium (Lovenox) 30 mg DAILY SC ; Start 02/10/17 at 09:00 Sodium Bicarbonate (Sodium Bicarbonate Tab) 650 mg QID PO Last administered on 02/10/17 09:46; Admin Dose 650 MG; Start 02/10/17 at 09:00 Hydralazine HCl (Apresoline) 10 mg Q6H PRN IV ELEVATED SYSTOLIC BP Last administered on 02/10/17 00:44; Admin Dose 10 MG; Start 02/10/17 at 00:30 Morphine Sulfate (morphine) 2 mg Q4H PRN IV PAIN; Start 02/10/17 at 00:30 Carvedilol (Coreg) 3.125 mg BID PO ; Start 02/10/17 at 13:00 Procedures Procedures ECG with sinus rhythm, left bundle branch block, nonspecific ST abnormalities Sven Moreno DO Feb 10, 2017 14:42
[2017-02-10] MEDS ORDERED: DIPHENHYDRAMINE 50 MG INJ ONE (14:58)
[2017-02-10] MEDS ORDERED: MIDAZOLAM 1 MG/ML 2 ML INJ ONE (14:58)
[2017-02-10] MEDS ORDERED: FENTAnyl 50 MCG/ML VIAL ONE (14:58)
[2017-02-10] MEDS ORDERED: CEFAZOLIN 1 GM/50 ML (PMX) 50 ML IVPB ONE (14:58)
[2017-02-10] MEDS: ASPIRIN (EC) 81 MG TAB PO SCH (15:00)
--- NOTE | 2017-02-10 16:13 | RADRPT ---
PROCEDURE: PLACEMENT OF RIGHT INTERNAL JUGULAR VENOUS TUNNELED DIALYSIS CATHETER. CLINICAL INDICATION: Renal failure. TECHNIQUE: Prior to the procedure, informed consent was obtained. Risks including bleeding, infection, and pneu mothorax were explained to the patient and/or the patient's family. The patient and/or the patient's family understood and was willing to proceed. A procedural pause was performed. The patient's name, date of , and procedure to be performed were verified. The central line was inserted with all elements of maximal sterile barrier technique. All of the following were used: head covering, facial mask, sterile gown, sterile gloves, a large sterile sheet, hand hygiene, and 2% chlorhexidine for cutaneous antisepsis. The right neck and anterior/superior chest wall was prepped and draped in usu al sterile fashion. Limited sonography of the right neck was then performed. Noted is a patent right internal jugular ve in. Ultrasound images were recorded and stored in the patient's medical record. Following the local injection of Xylocaine, the right internal jugular vein was punctured under sono graphic guidance with a 20-gauge needle through which a 0.018 inch floppy tip guidewire was advanced into the superior vena cava. The tract was dilated to 5 La[place] and the wire was then replaced with a 0.035 in Amplatz guidewire. A tunnel was then created from the anterior lateral aspect of the sup erior right chest wall to the puncture site in the neck and the catheter was pulled through the trac t. Serial dilatation was then performed and a 16 Lao peel away sheath was introduced. The 14.5 [place] 23cm tip to cuff Angiodynamics BioFlo DuraMax dialysis catheter was advanced through the 16 F rench peel-away sheath. The tip of the catheter was confirmed in position within the right atrium. T he peel-away sheath was removed. The 2 ports were each flushed with 2.3 ml of 1:1000 heparin. The c atheter was secured to the skin with 2-0 silk. The wound in the neck was closed with 4-0 Vicryl suture using subcuticular running technique. The site was dressed. The patient tolerated the proce dure well. COMPARISON: None. FINDINGS: Final radiographic images demonstrate the tip of the catheter in the upper right atrium. A total of 0.2 minutes of fluoroscopy time was used. The ultrasound images demonstrate the needle entering th e jugular vein. Ultrasound images were recorded and stored in the patient's medical record. 4 image s of the chest were obtained with image intensifier. IMPRESSION: 1. Percutaneous insertion of right internal jugular dialysis tunneled dialysis catheter under fluoro scopic and sonographic guidance. RPTAT: QQ .David Krishnamurthy MD, MD Date Time Electronically viewed and signed by .David Krishnamurthy MD, MD on 02/10/2017 16:13 .R/
[2017-02-10] MEDS: EPOETIN 10000 UNITS/1 ML INJ (ESRD) SC SCH (17:00)
[2017-02-10] MEDS: ENOXAPARIN 30 MG/0.3 ML SYG SC SCH (19:04)
--- NOTE | 2017-02-10 19:06 | RADRPT ---
Vent Rate: 76 bpm RR Interval: 0 msec GA Interval: 172 msec QRS Duration: 154 msec QT Interval: 452 msec QTC Interval: 508 msec P-R-T [place]: 57 - -61 - 112 degrees Sinus rhythm with premature supraventricular complexes Left axis deviation Left bundle branch block Abnormal ECG Electronically Signed By: Kan Uriarte [id number]
[2017-02-10] MEDS: ATORVASTATIN 20 MG TAB PO SCH (20:36)
[2017-02-11] VITALS (18 sets, daily range): BP systolic 117–177; BP diastolic 52–78; PULSE 64–73; RESP 18–20
[2017-02-11] MEDS: PANTOPRAZOLE (EC) 40 MG TAB PO SCH (06:22)
[2017-02-11 07:14] LABS: BASOPHILS % 0.5 % (0.0-2.0); EOSINOPHILS # 0.2 10^3/ul (0.0-0.5); EOSINOPHILS % 3.7 % (0.0-7.0); HEMATOCRIT 28.3 % (37.0-47.0); LYMPHOCYTES # 0.8 10^3/ul (0.8-2.9); LYMPHOCYTES % 14.1 % (15.0-51.0); MEAN CORPUSCULAR HGB CONC 31.8 g/dl (32.0-37.0); MEAN CORPUSCULAR VOLUME 97.6 fl (82.0-101.0); MEAN PLATELET VOLUME 9.3 fl (7.4-10.4); MONOCYTE # 0.5 10^3/ul (0.3-0.9); MONOCYTES % 8.7 % (0.0-11.0); NEUTROPHIL # 4.3 10^3/ul (1.6-7.5); NEUTROPHILS % 72.7 % (39.0-77.0); PLATELET COUNT 297 10^3/UL (140-415)
[2017-02-11 07:37] LABS: CALCIUM 8.6 mg/dl (8.4-10.2); CREATININE 4.58 mg/dl (0.44-1.00); POTASSIUM 3.9 mmol/L (3.5-5.1)
--- NOTE | 2017-02-11 07:51 | RADRPT ---
PROCEDURE: Ultrasound guidance for placement of needle in right internal jugular vein. CLINICAL INDICATION: Venous access. TECHNIQUE: Prior to the procedure, informed consent was obtained. Risks including bleeding, infection, and pneu mothorax were explained to the patient. The patient understood and was willing to proceed. A procedu ral pause was performed. The patient's name, date of , and procedure to be performed were verif ied. The central line was inserted with all elements of maximal sterile barrier technique. All of th e following were used: head covering, facial mask, sterile gown, sterile gloves, a large sterile she et, hand hygiene, and 2% chlorhexidine for cutaneous antisepsis. The right neck and anterior/super ior chest wall was prepped and draped in usual sterile fashion. Limited sonography of the right neck was then performed. Noted is a patent right internal jugular ve in. Ultrasound images were recorded and stored in the patient's medical record. Following the local injection of Xylocaine, the right internal jugular vein was punctured under sono graphic guidance with a 20-gauge needle through which a 0.018 inch floppy tip guidewire was advanced into the superior vena cava. The patient tolerated the procedure well. The remainder of the proce dure was performed and dictated under separate cover. COMPARISON: None. FINDINGS: The ultrasound images demonstrate a patent right internal jugular vein. The subsequent images demon strate the needle entering the right internal jugular vein. IMPRESSION: 1. Ultrasound guidance for a needle placement in right internal jugular vein. RPTAT: QQ .David Krishnamurthy MD, Date Time Electronically viewed and signed by .David Krishnamurthy MD, on 02/11/2017 07:51 .R/
--- NOTE | 2017-02-11 08:18 | CONS ---
Date/Time of Note Date/Time of Note DATE: 02/11/17 TIME: 08:15 Assessment/Plan Assessment/Plan Chief Complaint/Hosp Course 86 female with history of rheumatoid arthritis, hypertension, osteoporosis, ckd stage 5, MGUS, anemia, hx of interstitial cystitis s/p cystectomy and ureterostomy placement presents with CKD stage 5 and uremia. Problems: (1) CKD (chronic kidney disease) stage 5, GFR less than 15 ml/min Status: Acute (2) Anemia in CKD (chronic kidney disease) Status: Chronic (3) Metabolic acidosis Status: Chronic (4) Uremia Status: Acute (5) Hyperphosphatemia (6) Hypertension Status: Chronic (7) Interstitial cystitis Status: Chronic (8) Osteoporosis Status: Chronic Additional Assessment/Plan given uremia, start HD today. 2 hours. 250/500. 1L UF as tolerated. permacatheter placed 02/10/17. check phosphorus level daily. once patient is started on HD, can d/c sodium bicarbonate. continue renvela 1.6g with meals for hyperphosphatemia. epo 5000 units with hemodialysis f/u quant gold and hepatitis panel in preparation for outpatient HD placement. case management consult for placement at [facility] in [place]. renally dose all medications to eGFR given that patient continues to make urine, avoid nephrotoxins if possible including iodinated contrast and NSAIDs. renal diet Feel free to call at any time: can text or call cell: [phone] office: [phone] Consultation Date/Type/Reason Admit Date/Time Feb 09, 2017 at 16:58 Initial Consult Date 02/09/17 Type of Consultation: cv Reason for Consultation management of ESRD Referring Provider: ALEXANDRA COOPER MD 24 HR Interval Summary Free Text/Dictation permacatheter placed. patient awaiting HD today. no dyspnea. making urine. nausea improved today. no vomiting. no diarrhea. Exam/Review of Systems Vital Signs Vitals Vital Signs Date Time Temp Pulse Resp B/P Pulse Ox O2 Delivery O2 Flow Rate FiO2 02/11/17 07:52 98.1 65 20 134/63 97 02/09/17 20:49 Room Air Intake and Output 02/10/17 02/10/17 02/11/17 15:00 23:00 07:00 Intake Total 200 ml Output Total 800 ml Balance -600 ml Exam GENERAL: A&Ox3 NAD speaking in full sentences, cooperative and pleasant. Head: ncat, no ttp eyes: perrl, eomi, no scleral icterus. +conjunctival pallor neck: no jvd, no bruits, no cervical LAD CV: normal S1/S2 RRR no mrg LUNGS: ctab good air entry. no accessory muscle use. ABD: normal BS soft, NT, ND, catheter placed in suprapubic region. EXT: 1+ lower extremity to mid [place]. edema around elbows b/l. 2+ DP/PT pulses b/l SKIN: no rash, no erythema, no warmth. Results Result Diagram: 02/11/1752 02/11/17 0552 Results 24 hrs Laboratory Tests Test 02/11/17 05:52 White Blood Count 6.0 Red Blood Count 2.90 L Hemoglobin 9.0 L Hematocrit 28.3 L Mean Corpuscular Volume 97.6 Mean Corpuscular Hemoglobin 31.0 Mean Corpuscular Hemoglobin Concent 31.8 L Red Cell Distribution Width 15.0 H Platelet Count 297 Mean Platelet Volume 9.3 Neutrophils % 72.7 Lymphocytes % 14.1 L Monocytes % 8.7 Eosinophils % 3.7 Basophils % 0.5 Nucleated Red Blood Cells % 0.0 Neutrophils # 4.3 Lymphocytes # 0.8 Monocytes # 0.5 Eosinophils # 0.2 Basophils # 0.0 Nucleated Red Blood Cells # 0.0 Sodium Level 143 Potassium Level 3.9 Chloride Level 111 H Carbon Dioxide Level 15 L Anion Gap 21 H Blood Urea Nitrogen 58 H Creatinine 4.58 H Glucose Level 81 Calcium Level 8.6 Medications Medications Current Medications Epoetin Uzair (Epogen (Esrd)) 5,000 units MoWeFr@17 SC ; Start 02/10/17 at 17:00 Cholecalciferol (Vitamin D) 2,000 unit DAILY PO Last administered on 02/10/17 09:51; Admin Dose 2,000 UNIT; Start 02/10/17 at 09:00 Tramadol HCl (Ultram) 50 mg BID PRN PO PAIN Last administered on 02/10/17 10: 15; Admin Dose 50 MG; Start 02/09/17 at 19:30 Pantoprazole (Protonix Tab) 40 mg DAILY@06 PO Last administered on 02/11/17 06 :22; Admin Dose 40 MG; Start 02/10/17 at 06:00 Ondansetron HCl (Zofran Tab) 4 mg Q6H PRN PO NAUSEA AND/OR VOMITING Last administered on 02/10/17 10:19; Admin Dose 4 MG; Start 02/09/17 at 19:30 Ondansetron HCl (Zofran Inj) 4 mg Q6H PRN IV NAUSEA AND/OR VOMITING; Start at 19:30 Acetaminophen (Tylenol Tab) 650 mg Q6H PRN PO PAIN LEVEL 1-3 OR FEVER; Start at 19:30 Acetaminophen/ Hydrocodone Bitart ([place] (5/325)) 1 tab Q6H PRN PO MODERATE PAIN LEVEL 4-6; Start 02/09/17 at 19:30 Docusate Sodium (Colace) 100 mg Q12H PRN PO CONSTIPATION; Start 02/09/17 at 19: 30 Magnesium Hydroxide (Milk Of Mag) 30 ml DAILY PRN PO CONSTIPATION; Start at 19:30 Bisacodyl (Dulcolax) 5 mg DAILY PRN PO CONSTIPATION; Start 02/09/17 at 19:30 Enoxaparin Sodium (Lovenox) 30 mg DAILY SC Last administered on 02/10/17 19:04 ; Admin Dose 30 MG; Start 02/10/17 at 09:00 Sodium Bicarbonate (Sodium Bicarbonate Tab) 650 mg QID PO Last administered on 02/10/17 20:36; Admin Dose 650 MG; Start 02/10/17 at 09:00 Hydralazine HCl (Apresoline) 10 mg Q6H PRN IV ELEVATED SYSTOLIC BP Last administered on 02/10/17 00:44; Admin Dose 10 MG; Start 02/10/17 at 00:30 Morphine Sulfate (morphine) 2 mg Q4H PRN IV PAIN; Start 02/10/17 at 00:30 Carvedilol (Coreg) 6.25 mg BID PO Last administered on 02/10/17 20:37; Admin Dose 6.25 MG; Start 02/10/17 at 21:00 Aspirin (Halfprin) 81 mg DAILY PO ; Start 02/10/17 at 15:00 Atorvastatin Calcium (Lipitor) 20 mg HS PO Last administered on 02/10/17 20:36 ; Admin Dose 20 MG; Start 02/10/17 at 21:00 SIMONE BUSTILLO MD Feb 11, 2017 08:18
[2017-02-11] MEDS: ASPIRIN (EC) 81 MG TAB PO SCH (09:00)
--- NOTE | 2017-02-11 09:50 | PN ---
Date/Time of Note Date/Time of Note DATE: 02/11/17 TIME: 09:49 Assessment/Plan VTE Prophylaxis VTE Prophylaxis Intervention: SCD's Lines/Catheters [facility] Urinary Cath still in place: Yes Reason Cath still needed: urinary retention Assessment/Plan Assessment/Plan Acute on chronic kidney disease Mildly elevated troponin Left ventricular hypertrophy Preserved ejection fraction -Patient with incidental mildly elevated troponin, likely secondary to decreased renal clearance and patient remains asymptomatic. Echocardiogram with preserved ejection fraction and evidence of LVH. Would continue aspirin therapy and statin therapy if no complication. Beta-blockers heart rate and blood pressure permits. The benefits of permacath placement outweigh the cardiac risks at the current time. Subjective 24 Hr Interval Summary Free Text/Dictation the aptient with no complaints Exam/Review of Systems Vital Signs Vitals Vital Signs Date Time Temp Pulse Resp B/P Pulse Ox O2 Delivery O2 Flow Rate FiO2 02/11/17 08:16 64 02/11/17 07:52 98.1 20 134/63 97 02/09/17 20:49 Room Air Intake and Output 02/10/17 02/10/17 02/11/17 15:00 23:00 07:00 Intake Total 200 ml Output Total 800 ml Balance -600 ml Results Result Diagram: 02/11/17 0552 02/11/17 0552 Results 24 hrs Laboratory Tests Test 02/11/17 05:52 White Blood Count 6.0 Red Blood Count 2.90 L Hemoglobin 9.0 L Hematocrit 28.3 L Mean Corpuscular Volume 97.6 Mean Corpuscular Hemoglobin 31.0 Mean Corpuscular Hemoglobin Concent 31.8 L Red Cell Distribution Width 15.0 H Platelet Count 297 Mean Platelet Volume 9.3 Neutrophils % 72.7 Lymphocytes % 14.1 L Monocytes % 8.7 Eosinophils % 3.7 Basophils % 0.5 Nucleated Red Blood Cells % 0.0 Neutrophils # 4.3 Lymphocytes # 0.8 Monocytes # 0.5 Eosinophils # 0.2 Basophils # 0.0 Nucleated Red Blood Cells # 0.0 Sodium Level 143 Potassium Level 3.9 Chloride Level 111 H Carbon Dioxide Level 15 L Anion Gap 21 H Blood Urea Nitrogen 58 H Creatinine 4.58 H Glucose Level 81 Calcium Level 8.6 Medications Medications Current Medications Epoetin Uzair (Epogen (Esrd)) 5,000 units MoWeFr@17 SC ; Start 02/10/17 at 17:00 Cholecalciferol (Vitamin D) 2,000 unit DAILY PO Last administered on 02/10/17 09:51; Admin Dose 2,000 UNIT; Start 02/10/17 at 09:00 Tramadol HCl (Ultram) 50 mg BID PRN PO PAIN Last administered on 02/10/17 10: 15; Admin Dose 50 MG; Start 02/09/17 at 19:30 Pantoprazole (Protonix Tab) 40 mg DAILY@06 PO Last administered on 02/11/17 06 :22; Admin Dose 40 MG; Start 02/10/17 at 06:00 Ondansetron HCl (Zofran Tab) 4 mg Q6H PRN PO NAUSEA AND/OR VOMITING Last administered on 02/10/17 10:19; Admin Dose 4 MG; Start 02/09/17 at 19:30 Ondansetron HCl (Zofran Inj) 4 mg Q6H PRN IV NAUSEA AND/OR VOMITING; Start at 19:30 Acetaminophen (Tylenol Tab) 650 mg Q6H PRN PO PAIN LEVEL 1-3 OR FEVER; Start at 19:30 Acetaminophen/ Hydrocodone Bitart ([place] (5/325)) 1 tab Q6H PRN PO MODERATE PAIN LEVEL 4-6; Start 02/09/17 at 19:30 Docusate Sodium (Colace) 100 mg Q12H PRN PO CONSTIPATION; Start 02/09/17 at 19: 30 Magnesium Hydroxide (Milk Of Mag) 30 ml DAILY PRN PO CONSTIPATION; Start at 19:30 Bisacodyl (Dulcolax) 5 mg DAILY PRN PO CONSTIPATION; Start 02/09/17 at 19:30 Enoxaparin Sodium (Lovenox) 30 mg DAILY SC Last administered on 02/10/17 19:04 ; Admin Dose 30 MG; Start 02/10/17 at 09:00 Sodium Bicarbonate (Sodium Bicarbonate Tab) 650 mg QID PO Last administered on 02/10/17 20:36; Admin Dose 650 MG; Start 02/10/17 at 09:00 Hydralazine HCl (Apresoline) 10 mg Q6H PRN IV ELEVATED SYSTOLIC BP Last administered on 02/10/17 00:44; Admin Dose 10 MG; Start 02/10/17 at 00:30 Morphine Sulfate (morphine) 2 mg Q4H PRN IV PAIN; Start 02/10/17 at 00:30 Carvedilol (Coreg) 6.25 mg BID PO Last administered on 02/10/17 20:37; Admin Dose 6.25 MG; Start 02/10/17 at 21:00 Aspirin (Halfprin) 81 mg DAILY PO ; Start 02/10/17 at 15:00 Atorvastatin Calcium (Lipitor) 20 mg HS PO Last administered on 02/10/17 20:36 ; Admin Dose 20 MG; Start 02/10/17 at 21:00 BUCK PINEDA MD Feb 11, 2017 09:50
[2017-02-11] MEDS: CHOLECALCIFEROL 2,000 UNIT CAP PO SCH (09:54)
[2017-02-11] MEDS: SEVELAMER CARBONATE 0.8 GM PKT PO SCH ×3 (09:54→18:38)
[2017-02-11] MEDS: NA BICARBONATE 650 MG TAB PO SCH ×4 (09:54→20:05)
[2017-02-11] MEDS: ENOXAPARIN 30 MG/0.3 ML SYG SC SCH (10:03)
[2017-02-11] MEDS: traMADol 50 MG TAB PO PRN (12:42)
--- NOTE | 2017-02-11 13:17 | PN ---
Date/Time of Note Date/Time of Note DATE: 02/11/17 TIME: 13:16 Assessment/Plan VTE Prophylaxis VTE Prophylaxis Intervention: SCD's Lines/Catheters IV Catheter Type (from Nrs): Saline Lock Urinary Cath still in place: Yes Reason Cath still needed: other (indicate) (chronic SP cath) Assessment/Plan Assessment/Plan 86 yo F with CKD5 directly admitted from nephrology clinic for hyperkalemia ( now resolved) and progressive uremia. Admitted to facilitate initiation of HD. Labs also notable for incidental finding of elevated troponin. Pt denies chest pain. #ESRD: renal following sp HD line placement 7. will dc PO bicarb once HD is started CM working on outpatient HD logistics #elevated troponin: clinical significance unclear in absence of chest pain -cardiology consulted-->suspect 2/2 impaired clearance. TTE with LVH -started on bb, statin, asa -uptitrate bb as tolerated #h/o RA: tramadol PRN pain, hold NSAIDs #FEN: renal diet, no IVFs DVT prophx Subjective 24 Hr Interval Summary Free Text/Dictation Pt needed some assistance setting up her breakfast tray on account of her RA Exam/Review of Systems Vital Signs Vitals Vital Signs Date Time Temp Pulse Resp B/P Pulse Ox O2 Delivery O2 Flow Rate FiO2 02/11/17 12:12 67 02/11/17 11:44 98.0 20 131/59 96 02/09/17 20:49 Room Air Intake and Output 02/10/17 02/10/17 02/11/17 15:00 23:00 07:00 Intake Total 200 ml Output Total 800 ml Balance -600 ml Exam nad, sitting up in bed HD line c/d/i no mrg lungs clear abd soft +SP catheter Results Result Diagram: 02/11/17 0552 02/11/17 0552 Results 24 hrs Laboratory Tests Test 02/11/17 05:52 White Blood Count 6.0 Red Blood Count 2.90 L Hemoglobin 9.0 L Hematocrit 28.3 L Mean Corpuscular Volume 97.6 Mean Corpuscular Hemoglobin 31.0 Mean Corpuscular Hemoglobin Concent 31.8 L Red Cell Distribution Width 15.0 H Platelet Count 297 Mean Platelet Volume 9.3 Neutrophils % 72.7 Lymphocytes % 14.1 L Monocytes % 8.7 Eosinophils % 3.7 Basophils % 0.5 Nucleated Red Blood Cells % 0.0 Neutrophils # 4.3 Lymphocytes # 0.8 Monocytes # 0.5 Eosinophils # 0.2 Basophils # 0.0 Nucleated Red Blood Cells # 0.0 Sodium Level 143 Potassium Level 3.9 Chloride Level 111 H Carbon Dioxide Level 15 L Anion Gap 21 H Blood Urea Nitrogen 58 H Creatinine 4.58 H Glucose Level 81 Calcium Level 8.6 Medications Medications Current Medications Epoetin Uzair (Epogen (Esrd)) 5,000 units MoWeFr@ SC ; Start 02/10/17 at 17:00 Cholecalciferol (Vitamin D) 2,000 unit DAILY PO Last administered on 02/11/17 09:54; Admin Dose 2,000 UNIT; Start 02/10/17 at 09:00 Tramadol HCl (Ultram) 50 mg BID PRN PO PAIN Last administered on 02/11/17 12: 42; Admin Dose 50 MG; Start 02/09/17 at 19:30 Pantoprazole (Protonix Tab) 40 mg DAILY@06 PO Last administered on 02/11/17 06 :22; Admin Dose 40 MG; Start 02/10/17 at 06:00 Ondansetron HCl (Zofran Tab) 4 mg Q6H PRN PO NAUSEA AND/OR VOMITING Last administered on 02/10/17 10:19; Admin Dose 4 MG; Start 02/09/17 at 19:30 Ondansetron HCl (Zofran Inj) 4 mg Q6H PRN IV NAUSEA AND/OR VOMITING; Start at 19:30 Acetaminophen (Tylenol Tab) 650 mg Q6H PRN PO PAIN LEVEL 1-3 OR FEVER; Start at 19:30 Acetaminophen/ Hydrocodone Bitart ([place] (5/325)) 1 tab Q6H PRN PO MODERATE PAIN LEVEL 4-6; Start 02/09/17 at 19:30 Docusate Sodium (Colace) 100 mg Q12H PRN PO CONSTIPATION; Start 02/09/17 at 19: 30 Magnesium Hydroxide (Milk Of Mag) 30 ml DAILY PRN PO CONSTIPATION; Start at 19:30 Bisacodyl (Dulcolax) 5 mg DAILY PRN PO CONSTIPATION; Start 02/09/17 at 19:30 Enoxaparin Sodium (Lovenox) 30 mg DAILY SC Last administered on 02/11/17 10:03 ; Admin Dose 30 MG; Start 02/10/17 at 09:00 Sodium Bicarbonate (Sodium Bicarbonate Tab) 650 mg QID PO Last administered on 02/11/17 12:42; Admin Dose 650 MG; Start 02/10/17 at 09:00 Hydralazine HCl (Apresoline) 10 mg Q6H PRN IV ELEVATED SYSTOLIC BP Last administered on 02/10/17 00:44; Admin Dose 10 MG; Start 02/10/17 at 00:30 Morphine Sulfate (morphine) 2 mg Q4H PRN IV PAIN; Start 02/10/17 at 00:30 Carvedilol (Coreg) 6.25 mg BID PO Last administered on 02/10/17 20:37; Admin Dose 6.25 MG; Start 02/10/17 at 21:00 Aspirin (Halfprin) 81 mg DAILY PO ; Start 02/10/17 at 15:00 Atorvastatin Calcium (Lipitor) 20 mg HS PO Last administered on 02/10/17 20:36 ; Admin Dose 20 MG; Start 02/10/17 at 21:00 JESSICA BABB MD Feb 11, 2017 13:17
[2017-02-11 14:50] LABS: PHOSPHORUS 7.6 mg/dl (2.5-4.9)
[2017-02-11 15:06] LABS: MAGNESIUM 1.9 mg/dl (1.7-2.5)
[2017-02-11 15:14] LABS: TB-NIL 0.01 IU/mL
[2017-02-11 19:20] LABS: HEPATITIS B CORE ANTIBODY NEGATIVE (NEGATIVE)
[2017-02-11 19:35] LABS: HEPATITIS B CORE ANTIBODY NEGATIVE (NEGATIVE)
[2017-02-11] MEDS: ATORVASTATIN 20 MG TAB PO SCH (20:05)
[2017-02-11] MEDS: hydrALAzine 20 MG INJ IV PRN (20:14)
[2017-02-12] VITALS (16 sets, daily range): BP systolic 120–162; BP diastolic 56–70; PULSE 60–73; RESP 19–20
[2017-02-12] MEDS: PANTOPRAZOLE (EC) 40 MG TAB PO SCH (04:40)
[2017-02-12 07:12] LABS: CREATININE 3.32 mg/dl (0.44-1.00); PHOSPHORUS 4.1 mg/dl (2.5-4.9); POTASSIUM 3.2 mmol/L (3.5-5.1)
--- NOTE | 2017-02-12 08:18 | CONS ---
Date/Time of Note Date/Time of Note DATE: 02/12/17 TIME: 08:14 Assessment/Plan Assessment/Plan Chief Complaint/Hosp Course 86 female with history of rheumatoid arthritis, hypertension, osteoporosis, ckd stage 5, MGUS, anemia, hx of interstitial cystitis s/p cystectomy and ureterostomy placement presents with CKD stage 5 and uremia. Problems: (1) CKD (chronic kidney disease) stage 5, GFR less than 15 ml/min Status: Acute (2) Anemia in CKD (chronic kidney disease) Status: Chronic (3) Metabolic acidosis Status: Chronic (4) Hyperphosphatemia (5) Interstitial cystitis Status: Chronic (6) Osteoporosis Status: Chronic (7) Uremia Status: Acute (8) Hypertension Status: Chronic Additional Assessment/Plan HD today. 2 hours. 300/600. 1.5L UF as tolerated. permacatheter placed 02/10/17. HD initiated 02/11/17. check phosphorus level daily. quant gold and hepatitis bsag negative. hepatitis b sab +. d/c sodium bicarbonate. d/c renvela. epo 5000 units with hemodialysis from renal standpoint, patient can be discharged once she has been placed for outpatient dialysis at [facility] in [place]. renally dose all medications to eGFR < 10. given that patient continues to make urine, avoid nephrotoxins if possible including iodinated contrast and NSAIDs. renal diet Feel free to call at any time: can text or call cell: [phone] office: [phone] Consultation Date/Type/Reason Admit Date/Time Feb 09, 2017 at 16:58 Initial Consult Date 02/09/17 Type of Consultation: cv Reason for Consultation management of ESRD Referring Provider: ALEXANDRA COOPER MD 24 HR Interval Summary Free Text/Dictation no nausea. no vomiting. no confusion. fair appetite. tolerated HD well yesterday. awaiting HD today. gupta placed. yellow urine in bag. no fevers. no chills. Exam/Review of Systems Vital Signs Vitals Vital Signs Date Time Temp Pulse Resp B/P Pulse Ox O2 Delivery O2 Flow Rate FiO2 02/12/17 07:27 98.4 60 20 162/69 98 02/09/17 20:49 Room Air Intake and Output 02/11/17 02/11/17 02/12/17 15:00 23:00 07:00 Intake Total 300 ml 800 ml 400 ml Output Total 450 ml 2250 ml 700 ml Balance -150 ml -1450 ml -300 ml Exam GENERAL: A&Ox3 NAD speaking in full sentences, cooperative and pleasant. Head: ncat, no ttp eyes: perrl, eomi, no scleral icterus. +conjunctival pallor neck: no jvd, no bruits, no cervical LAD CV: normal S1/S2 RRR no mrg LUNGS: ctab good air entry. no accessory muscle use. ABD: normal BS soft, NT, ND, catheter placed in suprapubic region. EXT: 1+ lower extremity to mid [place]. edema around elbows b/l. 2+ DP/PT pulses b/l SKIN: no rash, no erythema, no warmth. Results Result Diagram: 02/11/17 0552 02/12/17 0556 Results 24 hrs Laboratory Tests Test 02/12/17 05:56 Sodium Level 139 Potassium Level 3.2 L Chloride Level 104 Carbon Dioxide Level 23 Anion Gap 15 Blood Urea Nitrogen 35 #H Creatinine 3.32 #H Glucose Level 110 Calcium Level 8.0 L Phosphorus Level 4.1 # Medications Medications Current Medications Epoetin Uzair (Epogen (Esrd)) 5,000 units MoWeFr@17 SC ; Start 02/10/17 at 17:00 Cholecalciferol (Vitamin D) 2,000 unit DAILY PO Last administered on 02/11/17 09:54; Admin Dose 2,000 UNIT; Start 02/10/17 at 09:00 Tramadol HCl (Ultram) 50 mg BID PRN PO PAIN Last administered on 02/11/17 12: 42; Admin Dose 50 MG; Start 02/09/17 at 19:30 Pantoprazole (Protonix Tab) 40 mg DAILY@06 PO Last administered on 02/12/17 04 :40; Admin Dose 40 MG; Start 02/10/17 at 06:00 Ondansetron HCl (Zofran Tab) 4 mg Q6H PRN PO NAUSEA AND/OR VOMITING Last administered on 02/10/17 10:19; Admin Dose 4 MG; Start 02/09/17 at 19:30 Ondansetron HCl (Zofran Inj) 4 mg Q6H PRN IV NAUSEA AND/OR VOMITING; Start at 19:30 Acetaminophen (Tylenol Tab) 650 mg Q6H PRN PO PAIN LEVEL 1-3 OR FEVER; Start at 19:30 Acetaminophen/ Hydrocodone Bitart ([place] (5/325)) 1 tab Q6H PRN PO MODERATE PAIN LEVEL 4-6; Start 02/09/17 at 19:30 Docusate Sodium (Colace) 100 mg Q12H PRN PO CONSTIPATION Last administered on 04:40; Admin Dose 100 MG; Start 02/09/17 at 19:30 Magnesium Hydroxide (Milk Of Mag) 30 ml DAILY PRN PO CONSTIPATION Last administered on 02/12/17 04:40; Admin Dose 30 ML; Start 02/09/17 at 19:30 Bisacodyl (Dulcolax) 5 mg DAILY PRN PO CONSTIPATION; Start 02/09/17 at 19:30 Enoxaparin Sodium (Lovenox) 30 mg DAILY SC Last administered on 02/11/17 10:03 ; Admin Dose 30 MG; Start 02/10/17 at 09:00 Hydralazine HCl (Apresoline) 10 mg Q6H PRN IV ELEVATED SYSTOLIC BP Last administered on 02/11/17 20:14; Admin Dose 10 MG; Start 02/10/17 at 00:30 Morphine Sulfate (morphine) 2 mg Q4H PRN IV PAIN; Start 02/10/17 at 00:30 Carvedilol (Coreg) 6.25 mg BID PO Last administered on 02/11/17 20:10; Admin Dose 6.25 MG; Start 02/10/17 at 21:00 Aspirin (Halfprin) 81 mg DAILY PO ; Start 02/10/17 at 15:00 Atorvastatin Calcium (Lipitor) 20 mg HS PO Last administered on 02/11/17 20:05 ; Admin Dose 20 MG; Start 02/10/17 at 21:00 SIMONE BUSTILLO MD Feb 12, 2017 08:18
[2017-02-12] MEDS: ASPIRIN (EC) 81 MG TAB PO SCH (09:00)
[2017-02-12] MEDS: CHOLECALCIFEROL 2,000 UNIT CAP PO SCH (10:23)
[2017-02-12] MEDS: ENOXAPARIN 30 MG/0.3 ML SYG SC SCH (10:27)
--- NOTE | 2017-02-12 15:31 | CONS ---
Date/Time of Note Date/Time of Note DATE: 02/12/17 TIME: 15:30 Assessment/Plan Assessment/Plan Additional Assessment/Plan Acute on chronic kidney disease started on hemodialysis Mildly elevated troponin Left ventricular hypertrophy Preserved ejection fraction -Patient with incidental mildly elevated troponin, likely secondary to decreased renal clearance and patient remains asymptomatic. Echocardiogram with preserved ejection fraction and evidence of LVH. Would continue aspirin therapy and statin therapy if no complication. Beta-blockers heart rate and blood pressure permits. Blood pressure elevated today but medications have been on hold secondary to possible hemodialysis. Consultation Date/Type/Reason Admit Date/Time Feb 09, 2017 at 16:58 Initial Consult Date 02/09/17 Type of Consultation: cv Referring Provider: ALEXANDRA COOPER MD 24 HR Interval Summary Free Text/Dictation Feeling better, denies chest pain, shortness of breath Exam/Review of Systems Vital Signs Vitals Vital Signs Date Time Temp Pulse Resp B/P Pulse Ox O2 Delivery O2 Flow Rate FiO2 02/12/17 12:19 66 02/12/17 11:52 98.6 20 133/60 98 02/09/17 20:49 Room Air Intake and Output 02/11/17 02/11/17 02/12/17 15:00 23:00 07:00 Intake Total 300 ml 800 ml 400 ml Output Total 450 ml 2250 ml 700 ml Balance -150 ml -1450 ml -300 ml Exam No apparent distress Constitutional: alert, oriented Head: normocephalic Respiratory: other (Coarse breath sounds bilaterally, no wheezing) Cardiovascular: other (S1-S2 heard), regular rate and rhythm Gastrointestinal: bowel sounds, non-tender, soft Extremities: edema Results Result Diagram: 02/11/17 0552 02/12/17 0556 Results 24 hrs Laboratory Tests Test 02/12/17 05:56 Sodium Level 139 Potassium Level 3.2 L Chloride Level 104 Carbon Dioxide Level 23 Anion Gap 15 Blood Urea Nitrogen 35 #H Creatinine 3.32 #H Glucose Level 110 Calcium Level 8.0 L Phosphorus Level 4.1 # Medications Medications Current Medications Epoetin Uzair (Epogen (Esrd)) 5,000 units MoWeFr@17 SC ; Start 02/10/17 at 17:00 Cholecalciferol (Vitamin D) 2,000 unit DAILY PO Last administered on 02/12/17t 10:23; Admin Dose 2,000 UNIT; Start 02/10/17 at 09:00 Tramadol HCl (Ultram) 50 mg BID PRN PO PAIN Last administered on 02/11/17 12: 42; Admin Dose 50 MG; Start 02/09/17 at 19:30 Pantoprazole (Protonix Tab) 40 mg DAILY@06 PO Last administered on 02/12/17 04 :40; Admin Dose 40 MG; Start 02/10/17 at 06:00 Ondansetron HCl (Zofran Tab) 4 mg Q6H PRN PO NAUSEA AND/OR VOMITING Last administered on 02/10/17 10:19; Admin Dose 4 MG; Start 02/09/17 at 19:30 Ondansetron HCl (Zofran Inj) 4 mg Q6H PRN IV NAUSEA AND/OR VOMITING; Start at 19:30 Acetaminophen (Tylenol Tab) 650 mg Q6H PRN PO PAIN LEVEL 1-3 OR FEVER; Start at 19:30 Acetaminophen/ Hydrocodone Bitart ([place] (5/325)) 1 tab Q6H PRN PO MODERATE PAIN LEVEL 4-6; Start 02/09/17 at 19:30 Docusate Sodium (Colace) 100 mg Q12H PRN PO CONSTIPATION Last administered on 04:40; Admin Dose 100 MG; Start 02/09/17 at 19:30 Magnesium Hydroxide (Milk Of Mag) 30 ml DAILY PRN PO CONSTIPATION Last administered on 02/12/17 04:40; Admin Dose 30 ML; Start 02/09/17 at 19:30 Bisacodyl (Dulcolax) 5 mg DAILY PRN PO CONSTIPATION; Start 02/09/17 at 19:30 Enoxaparin Sodium (Lovenox) 30 mg DAILY SC Last administered on 02/12/17 10:27 ; Admin Dose 30 MG; Start 02/10/17 at 09:00 Hydralazine HCl (Apresoline) 10 mg Q6H PRN IV ELEVATED SYSTOLIC BP Last administered on 02/11/17 20:14; Admin Dose 10 MG; Start 02/10/17 at 00:30 Morphine Sulfate (morphine) 2 mg Q4H PRN IV PAIN; Start 02/10/17 at 00:30 Carvedilol (Coreg) 6.25 mg BID PO Last administered on 02/11/17 20:10; Admin Dose 6.25 MG; Start 02/10/17 at 21:00 Aspirin (Halfprin) 81 mg DAILY PO ; Start 02/10/17 at 15:00 Atorvastatin Calcium (Lipitor) 20 mg HS PO Last administered on 02/11/17 20:05 ; Admin Dose 20 MG; Start 02/10/17 at 21:00 Sven Moreno DO Feb 12, 2017 15:31
--- NOTE | 2017-02-12 16:46 | PN ---
Date/Time of Note Date/Time of Note DATE: 02/12/17 TIME: 16:45 Assessment/Plan VTE Prophylaxis VTE Prophylaxis Intervention: SCD's Lines/Catheters IV Catheter Type (from Nrsg): Saline Lock Urinary Cath still in place: Yes Reason Cath still needed: other (indicate) Assessment/Plan Assessment/Plan 86 yo F with CKD5 directly admitted from nephrology clinic for hyperkalemia ( now resolved) and progressive uremia. Admitted to facilitate initiation of HD. Labs also notable for incidental finding of elevated troponin. Pt denies chest pain. #ESRD: renal following sp HD line placement 02.10 stop bicarb as HD started CM working on outpatient HD logistics #elevated troponin: clinical significance unclear in absence of chest pain -cardiology consulted-->suspect 2/2 impaired clearance. TTE with LVH -started on bb, statin, asa -uptitrate bb as tolerated -sp cardiology eval #h/o RA: tramadol PRN pain, hold NSAIDs #FEN: renal diet, no IVFs DVT prophx Subjective 24 Hr Interval Summary Free Text/Dictation Pt feels about the same today Exam/Review of Systems Vital Signs Vitals Vital Signs Date Time Temp Pulse Resp B/P Pulse Ox O2 Delivery O2 Flow Rate FiO2 02/12/17 16:12 71 02/12/17 14:30 18 02/12/17 11:52 98.6 133/60 98 02/09/17 20:49 Room Air Intake and Output 02/11/17 02/11/17 02/12/17 15:00 23:00 07:00 Intake Total 300 ml 800 ml 400 ml Output Total 450 ml 2250 ml 700 ml Balance -150 ml -1450 ml -300 ml Exam nad, sitting up in bed chest line c/d/i no mrg lungs clear abd soft Results Result Diagram: 02/11/17 0552 02/12/17 0556 Results 24 hrs Laboratory Tests Test 02/12/17 05:56 Sodium Level 139 Potassium Level 3.2 L Chloride Level 104 Carbon Dioxide Level 23 Anion Gap 15 Blood Urea Nitrogen 35 #H Creatinine 3.32 #H Glucose Level 110 Calcium Level 8.0 L Phosphorus Level 4.1 # Medications Medications Current Medications Epoetin Uzair (Epogen (Esrd)) 5,000 units MoWeFr@17 SC ; Start 02/10/17 at 17:00 Cholecalciferol (Vitamin D) 2,000 unit DAILY PO Last administered on 02/12/17 10:23; Admin Dose 2,000 UNIT; Start 02/10/17 at 09:00 Tramadol HCl (Ultram) 50 mg BID PRN PO PAIN Last administered on 02/11/17 12: 42; Admin Dose 50 MG; Start 02/09/17 at 19:30 Pantoprazole (Protonix Tab) 40 mg DAILY@06 PO Last administered on 02/12/17 04 :40; Admin Dose 40 MG; Start 02/10/17 at 06:00 Ondansetron HCl (Zofran Tab) 4 mg Q6H PRN PO NAUSEA AND/OR VOMITING Last administered on 02/10/17 10:19; Admin Dose 4 MG; Start 02/09/17 at 19:30 Ondansetron HCl (Zofran Inj) 4 mg Q6H PRN IV NAUSEA AND/OR VOMITING; Start at 19:30 Acetaminophen (Tylenol Tab) 650 mg Q6H PRN PO PAIN LEVEL 1-3 OR FEVER; Start at 19:30 Acetaminophen/ Hydrocodone Bitart ([place] (5/325)) 1 tab Q6H PRN PO MODERATE PAIN LEVEL 4-6; Start 02/09/17 at 19:30 Docusate Sodium (Colace) 100 mg Q12H PRN PO CONSTIPATION Last administered on 04:40; Admin Dose 100 MG; Start 02/09/17 at 19:30 Magnesium Hydroxide (Milk Of Mag) 30 ml DAILY PRN PO CONSTIPATION Last administered on 02/12/17 04:40; Admin Dose 30 ML; Start 02/09/17 at 19:30 Bisacodyl (Dulcolax) 5 mg DAILY PRN PO CONSTIPATION; Start 02/09/17 at 19:30 Enoxaparin Sodium (Lovenox) 30 mg DAILY SC Last administered on 02/12/17 10:27 ; Admin Dose 30 MG; Start 02/10/17 at 09:00 Hydralazine HCl (Apresoline) 10 mg Q6H PRN IV ELEVATED SYSTOLIC BP Last administered on 02/11/17 20:14; Admin Dose 10 MG; Start 02/10/17 at 00:30 Morphine Sulfate (morphine) 2 mg Q4H PRN IV PAIN; Start 02/10/17 at 00:30 Carvedilol (Coreg) 6.25 mg BID PO Last administered on 02/11/17 20:10; Admin Dose 6.25 MG; Start 02/10/17 at 21:00 Aspirin (Halfprin) 81 mg DAILY PO ; Start 02/10/17 at 15:00 Atorvastatin Calcium (Lipitor) 20 mg HS PO Last administered on 02/11/17 20:05 ; Admin Dose 20 MG; Start 02/10/17 at 21:00 JESSICA BABB MD Feb 12, 2017 16:46
[2017-02-12] MEDS: ATORVASTATIN 20 MG TAB PO SCH (20:54)
[2017-02-12] MEDS: hydrALAzine 20 MG INJ IV PRN (23:16)
[2017-02-13] VITALS (21 sets, daily range): BP systolic 122–188; BP diastolic 58–93; PULSE 70–82; RESP 18–20
[2017-02-13] MEDS: HYDROCODONE/APAP (5/325) TAB PO PRN (04:21)
[2017-02-13] MEDS: PANTOPRAZOLE (EC) 40 MG TAB PO SCH (04:21)
[2017-02-13] MEDS ORDERED: hydrALAzine 20 MG INJ IV PRN (04:30)
[2017-02-13 06:28] LABS: BASOPHILS % 0.4 % (0.0-2.0); EOSINOPHILS # 0.2 10^3/ul (0.0-0.5); EOSINOPHILS % 3.4 % (0.0-7.0); HEMATOCRIT 29.8 % (37.0-47.0); HEMOGLOBIN 9.6 g/dl (12.0-16.0); LYMPHOCYTES # 1.2 10^3/ul (0.8-2.9); LYMPHOCYTES % 25.6 % (15.0-51.0); MEAN CORPUSCULAR HEMOGLOBIN 30.7 pg (29.0-33.0); MEAN CORPUSCULAR HGB CONC 32.2 g/dl (32.0-37.0); MEAN CORPUSCULAR VOLUME 95.2 fl (82.0-101.0); MEAN PLATELET VOLUME 9.5 fl (7.4-10.4); MONOCYTE # 0.6 10^3/ul (0.3-0.9); MONOCYTES % 13.1 % (0.0-11.0); NEUTROPHIL # 2.6 10^3/ul (1.6-7.5); NEUTROPHILS % 56.4 % (39.0-77.0); PLATELET COUNT 189 10^3/UL (140-415); RED BLOOD COUNT 3.13 10^6/ul (4.20-5.40); RED CELL DISTRIBUTION WIDTH 14.6 % (11.5-14.5); WHITE BLOOD COUNT 4.7 10^3/ul (4.8-10.8)
[2017-02-13 07:08] LABS: CALCIUM 7.8 mg/dl (8.4-10.2); CREATININE 2.71 mg/dl (0.44-1.00); POTASSIUM 3.4 mmol/L (3.5-5.1)
--- NOTE | 2017-02-13 07:35 | CONS ---
Date/Time of Note Date/Time of Note DATE: 02/13/17 TIME: 07:30 Assessment/Plan Assessment/Plan Chief Complaint/Hosp Course 86 female with history of rheumatoid arthritis, hypertension, osteoporosis, ckd stage 5, MGUS, anemia, hx of interstitial cystitis s/p cystectomy and ureterostomy placement presents with CKD stage 5 and uremia. Problems: (1) CKD (chronic kidney disease) stage 5, GFR less than 15 ml/min Status: Acute (2) Anemia in CKD (chronic kidney disease) Status: Chronic (3) Metabolic acidosis Status: Chronic (4) Hypertension Status: Chronic (5) Uremia Status: Acute (6) Interstitial cystitis Status: Chronic (7) Osteoporosis Status: Chronic Additional Assessment/Plan HD today. 2 hours. 350/700. 1.5L UF as tolerated. permacatheter placed 02/10/17. HD initiated 02/11/17. quant gold and hepatitis bsag negative. hepatitis b sab +. epo 5000 units with hemodialysis on coreg. start amlodipine 2.5mg daily. from renal standpoint, patient can be discharged once she has been placed for outpatient dialysis at [facility]. renally dose all medications to eGFR < 10. given that patient continues to make urine, avoid nephrotoxins if possible including iodinated contrast and NSAIDs. renal diet Feel free to call at any time: can text or call cell: [phone] office: [phone] Consultation Date/Type/Reason Admit Date/Time Feb 09, 2017 at 16:58 Initial Consult Date 02/09/17 Type of Consultation: cv Reason for Consultation reason for consult: management of esrd now on hd. Referring Provider: ALEXANDRA COOPER MD 24 HR Interval Summary Free Text/Dictation complaining of total body pain today. no nausea. no vomiting. making urine. tolerated HD well yesterday. no dyspnea. Exam/Review of Systems Vital Signs Vitals Vital Signs Date Time Temp Pulse Resp B/P Pulse Ox O2 Delivery O2 Flow Rate FiO2 02/13/17 07:05 98.1 75 18 132/63 99 02/09/17 20:49 Room Air Intake and Output 02/12/17 02/12/17 02/13/17 15:00 23:00 07:00 Intake Total 1250 ml 700 ml Output Total 2050 ml 500 ml Balance -800 ml 200 ml Exam GENERAL: A&Ox3 NAD speaking in full sentences, cooperative and pleasant. Head: ncat, no ttp eyes: perrl, eomi, no scleral icterus. +conjunctival pallor neck: no jvd, no bruits, no cervical LAD CV: normal S1/S2 RRR no mrg LUNGS: ctab good air entry. no accessory muscle use. ABD: normal BS soft, NT, ND, catheter placed in suprapubic region. EXT: trace lower extremity to mid [place]. edema around elbows b/l. 2+ DP/PT pulses b/l SKIN: no rash, no erythema, no warmth. Results Result Diagram: 02/13/17 0530 02/13/17 0530 Results 24 hrs Laboratory Tests Test 02/13/17 05:30 White Blood Count 4.7 #L Red Blood Count 3.13 L Hemoglobin 9.6 L Hematocrit 29.8 L Mean Corpuscular Volume 95.2 Mean Corpuscular Hemoglobin 30.7 Mean Corpuscular Hemoglobin Concent 32.2 Red Cell Distribution Width 14.6 H Platelet Count 189 # Mean Platelet Volume 9.5 Neutrophils % 56.4 Lymphocytes % 25.6 Monocytes % 13.1 H Eosinophils % 3.4 Basophils % 0.4 Nucleated Red Blood Cells % 0.0 Neutrophils # 2.6 Lymphocytes # 1.2 Monocytes # 0.6 Eosinophils # 0.2 Basophils # 0.0 Nucleated Red Blood Cells # 0.0 Sodium Level 137 Potassium Level 3.4 L Chloride Level 101 Carbon Dioxide Level 25 Anion Gap 14 Blood Urea Nitrogen 24 #H Creatinine 2.71 H Glucose Level 97 Calcium Level 7.8 L Medications Medications Current Medications Epoetin Uzair (Epogen (Esrd)) 5,000 units MoWeFr@17 SC ; Start 02/10/17 at 17:00 Cholecalciferol (Vitamin D) 2,000 unit DAILY PO Last administered on 02/12/17 10:23; Admin Dose 2,000 UNIT; Start 02/10/17 at 09:00 Tramadol HCl (Ultram) 50 mg BID PRN PO PAIN Last administered on 02/11/17 12: 42; Admin Dose 50 MG; Start 02/09/17 at 19:30 Pantoprazole (Protonix Tab) 40 mg DAILY@06 PO Last administered on 02/13/17 04 :21; Admin Dose 40 MG; Start 02/10/17 at 06:00 Ondansetron HCl (Zofran Tab) 4 mg Q6H PRN PO NAUSEA AND/OR VOMITING Last administered on 02/10/17 10:19; Admin Dose 4 MG; Start 02/09/17 at 19:30 Ondansetron HCl (Zofran Inj) 4 mg Q6H PRN IV NAUSEA AND/OR VOMITING; Start at 19:30 Acetaminophen (Tylenol Tab) 650 mg Q6H PRN PO PAIN LEVEL 1-3 OR FEVER; Start at 19:30 Acetaminophen/ Hydrocodone Bitart ([place] (5/325)) 1 tab Q6H PRN PO MODERATE PAIN LEVEL 4-6 Last administered on 02/13/17 04:21; Admin Dose 1 TAB; Start at 19:30 Docusate Sodium (Colace) 100 mg Q12H PRN PO CONSTIPATION Last administered on 04:40; Admin Dose 100 MG; Start 02/09/17 at 19:30 Magnesium Hydroxide (Milk Of Mag) 30 ml DAILY PRN PO CONSTIPATION Last administered on 02/12/17 04:40; Admin Dose 30 ML; Start 02/09/17 at 19:30 Bisacodyl (Dulcolax) 5 mg DAILY PRN PO CONSTIPATION; Start 02/09/17 at 19:30 Enoxaparin Sodium (Lovenox) 30 mg DAILY SC Last administered on 02/12/17 10:27 ; Admin Dose 30 MG; Start 02/10/17 at 09:00 Morphine Sulfate (morphine) 2 mg Q4H PRN IV PAIN; Start 02/10/17 at 00:30 Carvedilol (Coreg) 6.25 mg BID PO Last administered on 02/12/17 20:55; Admin Dose 6.25 MG; Start 02/10/17 at 21:00 Aspirin (Halfprin) 81 mg DAILY PO ; Start 02/10/17 at 15:00 Atorvastatin Calcium (Lipitor) 20 mg HS PO Last administered on 02/12/17 20:54 ; Admin Dose 20 MG; Start 02/10/17 at 21:00 Hydralazine HCl (Apresoline) 10 mg Q4H PRN IV ELEVATED BLOOD PRESSURE Last administered on 02/13/17 04:20; Admin Dose 10 MG; Start 02/13/17 at 04:30 SIMONE BUSTILLO MD Feb 13, 2017 07:35
[2017-02-13] MEDS: CHOLECALCIFEROL 2,000 UNIT CAP PO SCH (09:00)
[2017-02-13] MEDS ORDERED: AMLODIPINE 2.5 MG TAB PO SCH (09:00)
[2017-02-13] MEDS: ENOXAPARIN 30 MG/0.3 ML SYG SC SCH (09:00)
[2017-02-13] MEDS: ASPIRIN (EC) 81 MG TAB PO SCH (09:00)
--- NOTE | 2017-02-13 09:50 | CONS ---
DATE OF ADMISSION: 02/09/2017 DATE OF CONSULTATION: 02/10/2017 HISTORY OF PRESENT ILLNESS: The patient is an 86-year-old woman with long history of rheumatoid arthritis as well as chronic renal insufficiency. The patient has had a creatinine of around 2.5 for years until earlier this year when she underwent right total knee replacement, and following that surgery, her creatinine climbed up to 3.5 or so, and then higher over 4.5 at times. The patient for rheumatoid arthritis has done well on Orencia 750 mg IV every four weeks. This was discontinued earlier this year prior to the surgery. More recently, she was developing recurrence of multiple joint pain and swelling, and Orencia was reinstituted two weeks ago. Orencia is given every two weeks for three doses and then every four weeks. She received the second dose two days ago. Laboratory studies from prior to that infusion two days ago showed potassium of 6.6. Creatinine was 4.38. Her french polisher had her come to the emergency room last night on discovering the potassium level. The patient is to undergo dialysis. This had been recommended to her in the recent past but she had refused. She has been having frequent episodes of nausea and intermittent vomiting lately and has been feeling weaker. Following the Orencia, she has been feeling better in regard to her joints. PAST MEDICAL HISTORY: Includes the rheumatoid arthritis, the renal insufficiency, chronic anemia, hypertension, history of intestinal blockade (not diverticulitis) in December 2011. PAST SURGICAL HISTORY: Right total knee replacement earlier this year. Cataract surgeries. Right foot bunion surgery. Bladder removal for chronic cystitis and redirection to self- catheterization from front. Bowel obstruction in 2011 as noted above. MEDICATIONS: Prior to admission included: 1. Orencia. 2. Prilosec. 3. Sodium bicarbonate 350 mg two times a day. 4. Diltiazem XR 180 mg daily. 5. Tramadol 50 mg two times a day to three times a day p.r.n. 6. Vitamin D 2000 units daily. 7. [place] 5/325 up to q.i.d. but generally once or twice. ALLERGIES: NO KNOWN ALLERGIES TO MEDICATIONS. SOCIAL HISTORY: The patient is . Does not smoke. Does not drink alcohol. FAMILY HISTORY: Positive for hypertension in the father. REVIEW OF SYSTEMS: At present without definite increasing arthralgias or joint swellings. She does have persistent contracture of her right knee, however, only mild pain there. GENERAL: No recent weight change. No fevers. No chills. SKIN: Without acute rash. No mouth or vaginal sores. HEENT: Without acute oral or ocular lesions. RESPIRATORY: No shortness of breath. No cough. CARDIOVASCULAR: No orthopnea or palpitations. GASTROINTESTINAL: Occasional nausea and vomiting lately. : No dysuria or hematuria. EXTREMITIES: No Raynaud phenomenon. LYMPHATICS: No lymphadenopathy. NEUROLOGICAL: Occasional headaches. No numbness or paresthesias. PHYSICAL EXAMINATION: VITAL SIGNS: Afebrile. Blood pressure 155/74. Pulse 73. Respiratory rate 17. Pulse oximetry showed 97 percent on room air. GENERAL APPEARANCE: Well-developed, thin, woman, alert and oriented x3. SKIN: Without acute lesions. HEENT: Without acute lesions. NECK: Without lymphadenopathy. LUNGS: Clear to auscultation. HEART: Regular rhythm without definite gallops or murmurs. ABDOMEN: Soft without tenderness. MUSCULOSKELETAL: Right knee with contracture. Minimal tenderness. Other joints with deformities but no active synovitis. NEUROLOGIC: Grossly intact. ASSESSMENT: 1. Renal failure, acute on chronic renal insufficiency. 2. Recent hyperkalemia. 3. Chronic anemia. 4. Rheumatoid arthritis, clinically stable at present. 5. Hypertension. PLAN: 1. Agree with present plan and dialysis in the short term at least. 2. May continue Tramadol for p.r.n. pain from my point of view. 3. Obviously avoid nonsteroidal anti-inflammatory agents. 4. Her next Orencia infusion is due in about two weeks. Sincerely, Dictated By: Norman Sweeney MD /anat/sim /Document#: [id number]
--- NOTE | 2017-02-13 12:08 | PN ---
Date/Time of Note Date/Time of Note DATE: 02/13/17 TIME: 11:57 Assessment/Plan VTE Prophylaxis VTE Prophylaxis Intervention: LMWH Lines/Catheters IV Catheter Type (from Nrs): Saline Lock Urinary Cath still in place: Yes Reason Cath still needed: urinary retention Assessment/Plan Chief Complaint/Hosp Course Assessment/Plan: 86 yo F with CKD5 directly admitted from nephrology clinic for hyperkalemia (now resolved) and progressive uremia, elevated troponin. 1. ESRD: renal following, sp HD line placement 7.28 Have stopped bicarb as HD started CM working on outpatient HD logistics 2. elevated troponin: clinical significance unclear in absence of chest pain - cardiology consulted-->suspect 2/2 impaired clearance. TTE with LVH - started on bb, statin, asa -uptitrate bb as tolerated -sp cardiology eval -follow-up recommendations 3. h/o RA: Appreciate rheumatology consult -Continue tramadol PRN pain, hold NSAIDs 4. FEN: renal diet, no IVFs 5. DVT prophx - LMWH Dispo: visiting housekeeper actively looking for outpatient dialysis placement, will follow up on them with this. Once that is established, likely patient can be discharged home. Problems: Subjective 24 Hr Interval Summary Free Text/Dictation Patient awaiting dialysis related today. No acute events overnight. Exam/Review of Systems Vital Signs Vitals Vital Signs Date Time Temp Pulse Resp B/P Pulse Ox O2 Delivery O2 Flow Rate FiO2 02/13/17 11:38 98.0 74 18 128/59 98 02/09/17 20:49 Room Air Intake and Output 02/12/17 02/12/17 02/13/17 15:00 23:00 07:00 Intake Total 1250 ml 700 ml Output Total 2050 ml 500 ml Balance -800 ml 200 ml Exam nad, sleeping, family member at bedside chest line c/d/i no mrg lungs clear abd soft Results Result Diagram: 02/13/17 0530 02/13/17 0530 Results 24 hrs Laboratory Tests Test 02/13/17 05:30 White Blood Count 4.7 #L Red Blood Count 3.13 L Hemoglobin 9.6 L Hematocrit 29.8 L Mean Corpuscular Volume 95.2 Mean Corpuscular Hemoglobin 30.7 Mean Corpuscular Hemoglobin Concent 32.2 Red Cell Distribution Width 14.6 H Platelet Count 189 # Mean Platelet Volume 9.5 Neutrophils % 56.4 Lymphocytes % 25.6 Monocytes % 13.1 H Eosinophils % 3.4 Basophils % 0.4 Nucleated Red Blood Cells % 0.0 Neutrophils # 2.6 Lymphocytes # 1.2 Monocytes # 0.6 Eosinophils # 0.2 Basophils # 0.0 Nucleated Red Blood Cells # 0.0 Sodium Level 137 Potassium Level 3.4 L Chloride Level 101 Carbon Dioxide Level 25 Anion Gap 14 Blood Urea Nitrogen 24 #H Creatinine 2.71 H Glucose Level 97 Calcium Level 7.8 L Medications Medications Current Medications Epoetin Uzair (Epogen (Esrd)) 5,000 units MoWeFr@17 SC ; Start 02/10/17 at 17:00 Cholecalciferol (Vitamin D) 2,000 unit DAILY PO Last administered on 02/13/17 09:00; Admin Dose 2,000 UNIT; Start 02/10/17 at 09:00 Tramadol HCl (Ultram) 50 mg BID PRN PO PAIN Last administered on 02/11/17 12: 42; Admin Dose 50 MG; Start 02/09/17 at 19:30 Pantoprazole (Protonix Tab) 40 mg DAILY@06 PO Last administered on 02/13/17 04 :21; Admin Dose 40 MG; Start 02/10/17 at 06:00 Ondansetron HCl (Zofran Tab) 4 mg Q6H PRN PO NAUSEA AND/OR VOMITING Last administered on 02/10/17 10:19; Admin Dose 4 MG; Start 02/09/17 at 19:30 Ondansetron HCl (Zofran Inj) 4 mg Q6H PRN IV NAUSEA AND/OR VOMITING; Start at 19:30 Acetaminophen (Tylenol Tab) 650 mg Q6H PRN PO PAIN LEVEL 1-3 OR FEVER; Start at 19:30 Acetaminophen/ Hydrocodone Bitart ([place] (5/325)) 1 tab Q6H PRN PO MODERATE PAIN LEVEL 4-6 Last administered on 02/13/17 04:21; Admin Dose 1 TAB; Start at 19:30 Docusate Sodium (Colace) 100 mg Q12H PRN PO CONSTIPATION Last administered on 04:40; Admin Dose 100 MG; Start 02/09/17 at 19:30 Magnesium Hydroxide (Milk Of Mag) 30 ml DAILY PRN PO CONSTIPATION Last administered on 02/12/17 04:40; Admin Dose 30 ML; Start 02/09/17 at 19:30 Bisacodyl (Dulcolax) 5 mg DAILY PRN PO CONSTIPATION; Start 02/09/17 at 19:30 Enoxaparin Sodium (Lovenox) 30 mg DAILY SC Last administered on 02/13/17 09:00 ; Admin Dose 30 MG; Start 02/10/17 at 09:00 Morphine Sulfate (morphine) 2 mg Q4H PRN IV PAIN; Start 02/10/17 at 00:30 Carvedilol (Coreg) 6.25 mg BID PO Last administered on 02/12/17 20:55; Admin Dose 6.25 MG; Start 02/10/17 at 21:00 Aspirin (Halfprin) 81 mg DAILY PO ; Start 02/10/17 at 15:00 Atorvastatin Calcium (Lipitor) 20 mg HS PO Last administered on 02/12/17 20:54 ; Admin Dose 20 MG; Start 02/10/17 at 21:00 Hydralazine HCl (Apresoline) 10 mg Q4H PRN IV ELEVATED BLOOD PRESSURE Last administered on 02/13/17 04:20; Admin Dose 10 MG; Start 02/13/17 at 04:30 Amlodipine Besylate (Norvasc) 2.5 mg DAILY PO ; Start 02/13/17 at 09:00 LUCAS ARREDONDO Feb 13, 2017 12:07
--- NOTE | 2017-02-13 13:55 | CONS ---
Date/Time of Note Date/Time of Note DATE: 02/13/17 TIME: 13:49 Consult Date/Type/Reason Admit Date/Time Feb 09, 2017 at 16:58 Initial Consult Date 02/09/17 Type of Consultation: Rheum Ordering Provider: ALEXANDRA COOPER MD Subjective No new complaints except feels a little stiffer all over attributed to bed rest. No new arthralgias. Tolerating dialysis well. Objective Vital Signs Date Time Temp Pulse Resp B/P Pulse Ox O2 Delivery O2 Flow Rate FiO2 02/13/17 12:12 73 02/13/17 11:38 98.0 18 128/59 98 02/09/17 20:49 Room Air Intake and Output 02/12/17 02/12/17 02/13/17 15:00 23:00 07:00 Intake Total 1250 ml 700 ml Output Total 2050 ml 500 ml Balance -800 ml 200 ml Exam Alert. Oriented. Skin without acute lesions. HEENT without acutte lesions. Neck Supple Chest Clear to ausc. Hear RRR Abd soft without tenderness or masses. Ext. Neg synovitis. Results/Medications Result Diagram: 02/13/17 0530 02/13/17 0530 Results 24 hrs Laboratory Tests Test 02/13/17 05:30 White Blood Count 4.7 #L Red Blood Count 3.13 L Hemoglobin 9.6 L Hematocrit 29.8 L Mean Corpuscular Volume 95.2 Mean Corpuscular Hemoglobin 30.7 Mean Corpuscular Hemoglobin Concent 32.2 Red Cell Distribution Width 14.6 H Platelet Count 189 # Mean Platelet Volume 9.5 Neutrophils % 56.4 Lymphocytes % 25.6 Monocytes % 13.1 H Eosinophils % 3.4 Basophils % 0.4 Nucleated Red Blood Cells % 0.0 Neutrophils # 2.6 Lymphocytes # 1.2 Monocytes # 0.6 Eosinophils # 0.2 Basophils # 0.0 Nucleated Red Blood Cells # 0.0 Sodium Level 137 Potassium Level 3.4 L Chloride Level 101 Carbon Dioxide Level 25 Anion Gap 14 Blood Urea Nitrogen 24 #H Creatinine 2.71 H Glucose Level 97 Calcium Level 7.8 L Medications Current Medications Epoetin Uzair (Epogen (Esrd)) 5,000 units MoWeFr@17 SC ; Start 02/10/17 at 17:00 Cholecalciferol (Vitamin D) 2,000 unit DAILY PO Last administered on 02/13/17 09:00; Admin Dose 2,000 UNIT; Start 02/10/17 at 09:00 Tramadol HCl (Ultram) 50 mg BID PRN PO PAIN Last administered on 02/11/17 12: 42; Admin Dose 50 MG; Start 02/09/17 at 19:30 Pantoprazole (Protonix Tab) 40 mg DAILY@06 PO Last administered on 02/13/17 04 :21; Admin Dose 40 MG; Start 02/10/17 at 06:00 Ondansetron HCl (Zofran Tab) 4 mg Q6H PRN PO NAUSEA AND/OR VOMITING Last administered on 02/10/17 10:19; Admin Dose 4 MG; Start 02/09/17 at 19:30 Ondansetron HCl (Zofran Inj) 4 mg Q6H PRN IV NAUSEA AND/OR VOMITING; Start at 19:30 Acetaminophen (Tylenol Tab) 650 mg Q6H PRN PO PAIN LEVEL 1-3 OR FEVER; Start at 19:30 Acetaminophen/ Hydrocodone Bitart ([place] (5/325)) 1 tab Q6H PRN PO MODERATE PAIN LEVEL 4-6 Last administered on 02/13/17 04:21; Admin Dose 1 TAB; Start at 19:30 Docusate Sodium (Colace) 100 mg Q12H PRN PO CONSTIPATION Last administered on 04:40; Admin Dose 100 MG; Start 02/09/17 at 19:30 Magnesium Hydroxide (Milk Of Mag) 30 ml DAILY PRN PO CONSTIPATION Last administered on 02/12/17 04:40; Admin Dose 30 ML; Start 02/09/17 at 19:30 Bisacodyl (Dulcolax) 5 mg DAILY PRN PO CONSTIPATION; Start 02/09/17 at 19:30 Enoxaparin Sodium (Lovenox) 30 mg DAILY SC Last administered on 02/13/17 09:00 ; Admin Dose 30 MG; Start 02/10/17 at 09:00 Morphine Sulfate (morphine) 2 mg Q4H PRN IV PAIN; Start 02/10/17 at 00:30 Carvedilol (Coreg) 6.25 mg BID PO Last administered on 02/12/17 20:55; Admin Dose 6.25 MG; Start 02/10/17 at 21:00 Aspirin (Halfprin) 81 mg DAILY PO ; Start 02/10/17 at 15:00 Atorvastatin Calcium (Lipitor) 20 mg HS PO Last administered on 02/12/17 20:54 ; Admin Dose 20 MG; Start 02/10/17 at 21:00 Hydralazine HCl (Apresoline) 10 mg Q4H PRN IV ELEVATED BLOOD PRESSURE Last administered on 02/13/17 04:20; Admin Dose 10 MG; Start 02/13/17 at 04:30 Amlodipine Besylate (Norvasc) 2.5 mg DAILY PO ; Start 02/13/17 at 09:00 Assessment/Plan Chief Complaint/Hosp Course Ass: 1. Rheumatoid Arthritis. controlled at present. 2. Renal insuf. Improved with dialysis. 3. Hyperkalemia Controlled 4. Anemia 5. Hypertension. Plan: Agree with present plan. Will follow as outpatient Problems: NANCY ROSSI MD Feb 13, 2017 13:55
[2017-02-13] MEDS ORDERED: morphine 4 MG/ML VIAL IV PRN (14:30)
[2017-02-13] MEDS ORDERED: EPOETIN 3000 UNITS/1 ML INJ (ESRD) SC SCH (17:00)
[2017-02-13] MEDS ORDERED: EPOETIN 2000 UNITS/1 ML INJ (ESRD) SC SCH (17:00)
[2017-02-13] MEDS: EPOETIN 10000 UNITS/1 ML INJ (ESRD) SC SCH (17:31)
[2017-02-13] MEDS: ATORVASTATIN 20 MG TAB PO SCH (20:49)
[2017-02-13] MEDS: traMADol 50 MG TAB PO PRN (20:49)
[2017-02-14] VITALS (8 sets, daily range): BP systolic 117–163; BP diastolic 56–77; PULSE 60–80; RESP 18–20
[2017-02-14] MEDS: PANTOPRAZOLE (EC) 40 MG TAB PO SCH (05:22)
[2017-02-14 06:57] LABS: BASOPHILS % 0.4 % (0.0-2.0); EOSINOPHILS # 0.2 10^3/ul (0.0-0.5); EOSINOPHILS % 4.2 % (0.0-7.0); HEMATOCRIT 29.1 % (37.0-47.0); HEMOGLOBIN 9.4 g/dl (12.0-16.0); LYMPHOCYTES # 1.5 10^3/ul (0.8-2.9); LYMPHOCYTES % 26.9 % (15.0-51.0); MEAN CORPUSCULAR HEMOGLOBIN 31.2 pg (29.0-33.0); MEAN CORPUSCULAR HGB CONC 32.3 g/dl (32.0-37.0); MEAN CORPUSCULAR VOLUME 96.7 fl (82.0-101.0); MEAN PLATELET VOLUME 9.7 fl (7.4-10.4); MONOCYTE # 0.8 10^3/ul (0.3-0.9); MONOCYTES % 14.7 % (0.0-11.0); NEUTROPHILS % 53.1 % (39.0-77.0); PLATELET COUNT 162 10^3/UL (140-415); RED BLOOD COUNT 3.01 10^6/ul (4.20-5.40); RED CELL DISTRIBUTION WIDTH 14.6 % (11.5-14.5); WHITE BLOOD COUNT 5.7 10^3/ul (4.8-10.8)
[2017-02-14 07:29] LABS: CALCIUM 7.7 mg/dl (8.4-10.2); CREATININE 2.43 mg/dl (0.44-1.00); POTASSIUM 3.4 mmol/L (3.5-5.1)
[2017-02-14] MEDS: HYDROCODONE/APAP (5/325) TAB PO PRN (08:59)
[2017-02-14] MEDS: ENOXAPARIN 30 MG/0.3 ML SYG SC SCH (09:10)
[2017-02-14] MEDS: ASPIRIN (EC) 81 MG TAB PO SCH (09:53)
[2017-02-14] MEDS: CHOLECALCIFEROL 2,000 UNIT CAP PO SCH (09:53)
--- NOTE | 2017-02-14 10:27 | PDOCDIS ---
Discharge Instructions CONDITION Patient Condition: Stable HOME CARE INSTRUCTIONS: Special Diet: Renal ACTIVITY: Activity Restrictions: Slowly Increase Activity FOLLOW UP/APPOINTMENTS Follow-up Plan Please take your medications as prescribed. Please follow-up with your regular doctor in the clinic in the next 1 week. Please go to your hemodialysis sessions as scheduled. LUCAS ARREDONDO Feb 14, 2017 10:27
[2017-02-14] MEDS ORDERED: ATOR20TA65 PO (10:33)
[2017-02-14] MEDS ORDERED: CARV6.2579 PO (10:33)
--- NOTE | 2017-02-14 10:43 | DS ---
Date/Time of Note Date/Time of Note DATE: 02/14/17 TIME: 10:37 Discharge Summary Admission/Discharge Info Admit Date/Time Feb 09, 2017 at 16:58 Discharge Date/Time Patient Condition: Stable Hx of Present Illness Hospital Course 86-year-old female with hypertension and rheumatoid arthritis who presented here with high creatinine and high potassium. She had been feeling tired recently and she also states that she had noticed more swelling in her lower extremities and also on her face and her elbows. The following was obtained from the ED physician documentation as well as nephrology documentation. Patient had outpatient labs performed yesterday which showed a high creatinine and high potassium. Her daughter state that her kidneys have not been getting worse over the past few months. The patient had a Newsome catheter and placed at [facility] and it was removed and she was unable to pee for 30 hours because of urinary retention. She follows with her orthodontic laboratory technician who had discussed dialysis with her however she was not interested at that time however now she is agreeable to it as per her orthodontic laboratory technician. So she was admitted here, and seen by renal, cardiology, and rheumatology teams. Her potassium levels came down to normal. She also had elevated troponin, and cardiology team felt that this was incidental a mildly elevated troponin, likely secondary to decreased renal clearance and patient remained asymptomatic. Patient was started on dialysis here. It was determined that patient will need outpatient dialysis, and this was set up by case management team. Her creatinine levels trended down. She was back at her baseline status, her vital signs were stable on the day of discharge. She will need to follow-up with her primary care doctor in the clinic as well. She has some changes made to her blood pressure medicines, see below for full discharge medication list. Home Meds Active Scripts Carvedilol* (Carvedilol*) 6.25 Mg Tablet, 6.25 MG PO BID, #30 TAB 2 Refills Prov:LUCAS ARREDONDO S. 02/14/17 Atorvastatin Calcium (Atorvastatin Calcium) 20 Mg Tablet, 20 MG PO HS, #30 TAB 2 Refills Prov:RACHARLENE RASCONLUCAS S. 02/14/17 Reported Medications [Orencia 750MG] No Conflict Check, 750 MG IV* [id number] 02/09/17 Cholecalciferol (Vitamin D3) (VITAMIN D-3) 2,000 Unit Capsule, 2000 UNIT PO DAILY, CAP 02/09/17 Tramadol Hcl* (Ultram*) 50 Mg Tablet, 50 MG PO BID Y for PAIN, TAB 02/09/17 Sodium Bicarbonate* (Sodium Bicarbonate*) 650 Mg Tablet, 650 MG PO BID, TAB 02/09/17 Omeprazole* (Omeprazole*) 20 Mg Capsule.dr, 20 MG PO DAILY, #30 CAP 02/09/17 Discontinued Reported Medications Diltiazem Hcl* (Diltiazem XT) 180 Mg Capsule.er, 180 MG PO DAILY, #30 CAP 02/09/17 Primary Care Provider Not On Staff Doctor Time spent on discharge: > 30 minutes Pending Labs Laboratory Tests Test 02/14/17 06:12 White Blood Count 5.710^3/ul (4.8-10.8) Red Blood Count 3.0110^6/ul (4.20-5.40) Hemoglobin 9.4g/dl (12.0-16.0) Hematocrit 29.1% (37.0-47.0) Mean Corpuscular Volume 96.7fl (82.0-101.0) Mean Corpuscular Hemoglobin 31.2pg (29.0-33.0) Mean Corpuscular Hemoglobin Concent 32.3g/dl (32.0-37.0) Red Cell Distribution Width 14.6% (11.5-14.5) Platelet Count 40350^3/UL (140-415) Mean Platelet Volume 9.7fl (7.4-10.4) Neutrophils % 53.1% (39.0-77.0) Lymphocytes % 26.9% (15.0-51.0) Monocytes % 14.7% (0.0-11.0) Eosinophils % 4.2% (0.0-7.0) Basophils % 0.4% (0.0-2.0) Nucleated Red Blood Cells % 0.0/100WBC (0.0-0.0) Neutrophils # 3.010^3/ul (1.6-7.5) Lymphocytes # 1.510^3/ul (0.8-2.9) Monocytes # 0.810^3/ul (0.3-0.9) Eosinophils # 0.210^3/ul (0.0-0.5) Basophils # 0.010^3/ul (0.0-0.1) Nucleated Red Blood Cells # 0.010^3/ul (0.0-0.0) Sodium Level 134mmol/L (135-144) Potassium Level 3.4mmol/L (3.5-5.1) Chloride Level 97mmol/L (97-110) Carbon Dioxide Level 27mmol/L (21-31) Anion Gap 13 (8-16) Blood Urea Nitrogen 20mg/dl (7-20) Creatinine 2.43mg/dl (0.44-1.00) Glucose Level 96mg/dl (70-220) Calcium Level 7.7mg/dl (8.4-10.2) LUCAS ARREDONDO Feb 14, 2017 10:43
[2017-02-14 15:00] LABS: TB-NIL 0.01 IU/mL
== END 2017-02-14 15:50 | disposition home or self-care (01) | DRG 673 ==
LOC: E/R 15:23 → TEL 16:58
PROVIDERS: ADMIT Internal Medicine; ATTEND Internal Medicine
PROC: 0JH63XZ Insertion of Tunneled Vascular Access Device into Chest Subcutaneous Tissue and Fascia, Percutaneous Approach (ICD-10-PCS; principal; 2017-02-10)
PROC: 02HV33Z Insertion of Infusion Device into Superior Vena Cava, Percutaneous Approach (ICD-10-PCS; 2017-02-10)
PROC: B543ZZA Ultrasonography of Right Jugular Veins, Guidance (ICD-10-PCS; 2017-02-10)
PROC: 5A1D60Z (ICD-10-PCS; 2017-02-11)
DX: I12.0 Hypertensive chronic kidney disease with stage 5 chronic kidney disease or end stage renal disease (principal); N18.6 End stage renal disease; N17.9 Acute kidney failure, unspecified; E87.2 Acidosis; E83.39 Other disorders of phosphorus metabolism; E87.5 Hyperkalemia; D63.1 Anemia in chronic kidney disease; M06.9 Rheumatoid arthritis, unspecified; M81.0 Age-related osteoporosis without current pathological fracture; Z99.2 Dependence on renal dialysis; Z90.6 Acquired absence of other parts of urinary tract; Z93.6 Other artificial openings of urinary tract status; Z96.651 Presence of right artificial knee joint
CPT/HCPCS: 36558; 71010; 76942; 80048; 80053; 82550; 82553; 83735; 84100; 84484; 85025; 85610; 85730; 86480; 86704; 86706; 87340; 90935; 93005; 93306; 96374; J0360; J0690; J0886; J1200; J1644; J1650; J2250; J3010; J7030; Q4081